=== PATIENT | male | born 1965 | race Caucasian/White ===

== ENCOUNTER 2022-09-25 11:09 | Emergency (ER) | payer OTHER, SELFPAY ==
--- NOTE | ~2022-09-25 | CT_ITS ---
Noncontrast CT scan of the lumbar spine CLINICAL HISTORY: Left leg radiculopathy TECHNIQUE: Axial noncontrast imaging of the lumbar spine was performed. Sagittal and coronal reformat radha images were constructed. Dose reduction technique was used on this scan by utilizing automated ex posure control and iterative reconstruction technique. The dose-length product (DLP) was 1316.81 mGy- cm. FINDINGS: There is no fracture or subluxation of the lumbar spine. Vertebral bodies maintain normal h eight and alignment. Intervertebral disc spaces are well preserved. At L1-L2, there is no disc bulge or herniation. No spinal canal stenosis or neural foraminal narrowin g. At L2-L3, there is disc bulge and mild facet arthropathy. There is possible minimal central canal kirk nosis. There is minimal left neural foraminal narrowing. Right neural foramen preserved. At L3-L4, there is minimal disc bulge. No central canal stenosis. There is minimal left neural forami nal narrowing. Right neural foramen preserved. At L4-L5, there is mild disc bulge. No alyson central canal stenosis. There is mild to moderate bilate ral neural foraminal narrowing. At L5-S1, there is no disc bulge or herniation. No spinal canal stenosis or neural foraminal narrowin g. Paravertebral soft tissues are unremarkable. Impression: Mild degenerative spondylosis, as detailed above. Reviewed, dictated and finalized at [facility]. Impression: Mild degenerative spondylosis, as detailed above.
[2022-09-25 11:16] VITALS: BP 119/98; PULSE 120; RESP 18; TEMP 36.8; O2SAT 99
--- NOTE | 2022-09-25 12:19 | PC.NURSE ---
Pt to CT scan via stretcher at this time.
[2022-09-25 12:59] VITALS: PULSE 109; RESP 16; O2SAT 93
[2022-09-25] MEDS: CYCLOBENZAPRINE HCL 5 MG TABLET PO (13:14)
--- NOTE | 2022-09-25 13:16 | ED.GENADULT ---
HPI - General Adult General Chief complaint: Unspecified Stated complaint: Hernia Time Seen by Provider: 09/25/22 11:45 History of Present Illness HPI narrative: This is a 56-year-old male with past history of coronary artery disease, who presents emergency department complaining of left lower back pain and leg pain after lifting heavy objects. The patient states 2 days ago, he lifted a heavy cooler. Shortly thereafter, he developed left lower back pain, described as sharp with radiation to the left leg and groin. He denies loss of bowel or bladder control and denies loss of sensation in the groin. Related Data Allergies Allergy/AdvReac Type Severity Reaction Status Date / Time No Known Allergies Allergy Verified 09/25/22 11:24 Review of Systems Review of Systems: CONSTITUTIONAL: Denies fever, chills, or sweats. CARDIOVASCULAR: Denies chest pain, palpitations, or edema. RESPIRATORY: Denies cough or dyspnea. GASTROINTESTINAL: Denies abdominal pain, nausea, vomiting, or diarrhea. GENITOURINARY: Denies dysuria or hematuria. SKIN: Denies rash or itching. MUSCULOSKELETAL: Left-sided low back pain denies joint pain, or myalgia. NEUROLOGIC: Denies headache, numbness, dizziness, or weakness. PSYCHIATRIC: Denies anxiety or depression. PMFSH Past Medical History Medical History (Updated 09/25/22 @ 13:23 by Nimesh Cox MD) Coronary artery disease Surgical History Surgical History (Updated 09/25/22 @ 13:17 by Nimesh Cox MD) S/P coronary artery stent placement Social History Social History (Updated 09/25/22 @ 13:20 by Nimesh Cox MD) Smoking status: Current every day smoker Alcohol intake: current Substance use: never Exam Narrative: GENERAL: Well-developed, well-nourished, and in no acute distress. HEAD: Normocephalic, atraumatic. EYES: PERRLA and EOMI. ENT: Nares clear, no rhinorrhea or epistaxis. Mucous membranes moist. Oropharynx without tonsillar hypertrophy exudate or other lesions. NECK: Supple. No adenopathy or masses. No carotid bruits or JVD. No midline spine tenderness to palpation, no step-off or crepitus CHEST: Clear to auscultation. No respiratory distress. No wheezes rales or rhonchi HEART: Regular rate and rhythm. No murmur heard. Normal peripheral pulses. ABDOMEN: Soft, nontender, nondistended, normal active bowel sounds. : Normal-appearing testes. Normal appearing penis. Circumcised. Cremasteric reflex intact. BACK: No midline spine tenderness to palpation, no step-off or crepitus EXTREMITIES: Normal range of motion. No edema. SKIN: Warm, dry, no rash. NEURO: No focal deficits. Alert and oriented x3. Strength 5/5 in all extremities, sensation intact bilaterally PSYCH: Normal mood and affect. Course Course Emergency Course: 13:00 -CT lumbar spine shows lumbar disc degenerative disease with mild left foraminal narrowing at L2-L3. There are no noted fractures or other masses. Will discharge with muscle relaxants and recommendations to follow-up with primary care. Discussed return and emergent precautions including signs/symptoms of cauda equina. The patient voiced understanding and is comfortable with the plan. All questions answered to his satisfaction. Vital Signs Vital signs: Vital Signs Temperature 98.3 F 09/25/22 11:16 Pulse Rate 120 H 09/25/22 11:16 Respiratory Rate 18 09/25/22 11:16 Blood Pressure 119/98 H 09/25/22 11:16 Pulse Oximetry 99 09/25/22 11:16 Oxygen Delivery Room Air 09/25/22 11:16 Temperature 98.3 F 09/25/22 11:16 Pulse Rate 109 H 09/25/22 12:59 Respiratory Rate 16 09/25/22 12:59 Blood Pressure 119/98 H 09/25/22 11:16 Pulse Oximetry 93 09/25/22 12:59 Oxygen Delivery Room Air 09/25/22 11:16 Medical Decision Making [facility] Narrative Medical decision making narrative: Plan: Imaging, pain control, reassess Differential Diagnosis Differential Diagnosis: Fracture, degenerative disc
[2022-09-25 13:21] VITALS: BP 144/101
== END 2022-09-25 13:34 | disposition home or self-care (01) ==
PROVIDERS: Emergency Provider Preventive Medicine Aerospace Medicine; PCP Internal Medicine Cardiovascular Disease
DX: M47.26 Other spondylosis with radiculopathy, lumbar region (principal); I25.10 Atherosclerotic heart disease of native coronary artery without angina pectoris; Z95.5 Presence of coronary angioplasty implant and graft; F17.200 Nicotine dependence, unspecified, uncomplicated
CPT/HCPCS: 72131; 99284; A9270

== ENCOUNTER 2024-11-21 13:07 | Outpatient (CLI) | payer MEDICAID, SELFPAY ==
--- NOTE | ~2024-11-21 | CT_ITS ---
CT Scan of the Chest without Contrast: Clinical Indication: Lung cancer screening, nicotine dependence Technique: Contiguous sections were acquired throughout the chest without intravenous contrast. Dose reduction technique was used on this scan by utilizing automated exposure control and iterative recon struction technique. The dose-length product (DLP) was 165.41 mGy-cm. Findings: There is no evidence of any significant mediastinal, hilar or axillary lymphadenopathy. The mediastin al soft tissues appear normal. There is no evidence of pleural or pericardial effusion. The lungs are clear. No pulmonary nodules or infiltrates are noted. Images through the upper abdomen reveal no abnormalities. Impression: Lung RADS 1: Negative. 12 month follow-up screening CT advised. Reviewed, dictated and finalized at location . Impression: Lung RADS 1: Negative. 12 month follow-up screening CT advised.
--- OUTSIDE RECORDS SUMMARY | 2024-11-21 13:11 | XMS_ITS | Clinical Summary ---
[facility] Organization [facility] Address [address] [place] [address] Phone Care Team Providers Care Proof Carrier Name Role Phone Analy Willis MD Primary Care Provider [phone] Allergies No known active allergies Medications amLODIPine (NORVASC) 10 mg tablet Starting 10/17/24, Take 1 Tablet (10 mg) by mouth daily. 30 Tablet 2 5 02/11/20 25 Active aspirin (ECOTRIN EC) 81 mg Tablet, Delayed Release (E.C.) Starting 10/17/24, Take 1 Tablet (81 mg) by mouth daily. 30 Tablet 2 5 02/11/20 25 Active Blood Pressure Monitor KitIndications:E ssential hypertension Monitor blood pressure daily 1 Kit 5 Active losartan (COZAAR) 25 mg tablet Starting 10/17/24, Take 1 Tablet (25 mg) by mouth daily. 30 Tablet 2 5 02/11/20 25 Active metoprolol succinate (TOPROL XL) 100 mg Extended Release 24 hour tablet Starting 10/17/24, Take 1 Tablet (100 mg) by mouth daily. 30 Tablet 2 5 02/11/20 25 Active rivaroxaban (XARELTO) 20 mg Tablet Take 1 Tablet (20 mg) by mouth daily with supper. 30 Tablet 2 5 02/11/20 25 Active rosuvastatin (CRESTOR) 10 mg tablet Take 4 Tablets (40 mg) by mouth daily. 120 Tablet 2 5 02/11/20 Active losartan (COZAAR) 25 mg tablet Take 1 Tablet (25 mg) by mouth daily. 30 Tablet 2 11/17/2024 9:18 AM CDT 5 Active amLODIPine (NORVASC) 10 mg tablet Take 1 Tablet (10 mg) by mouth daily. 30 Tablet 2 11/17/2024 9:18 AM CDT 5 Active rosuvastatin (CRESTOR) 10 mg tablet Take 4 Tablets (40 mg) by mouth daily. 120 Tablet 2 11/17/2024 9:18 AM CDT 5 Active metoprolol succinate (TOPROL XL) 100 mg Extended Release 24 hour tablet Take 1 Tablet (100 mg) by mouth daily. 30 Tablet 2 11/17/2024 9:18 AM CDT 5 Active aspirin (ECOTRIN EC) 81 mg Tablet, Delayed Release (E.C.) Take 1 Tablet (81 mg) by mouth daily. 30 Tablet 2 11/17/2024 9:18 AM CDT 5 Active rivaroxaban (Xarelto) 20 mg Tablet Take 1 Tablet (20 mg) by mouth daily with supper. 30 Tablet 2 11/17/2024 9:18 AM CDT 5 Active Miscellaneous Medical Supply (Blood Pressure Cuff) MONITOR BLOOD PRESSURE DAILY. 1 Each 5 Active aspirin (ECOTRIN EC) 81 mg Tablet, Delayed Release (E.C.) Starting 10/17/24, Take 1 Tablet (81 mg) by mouth daily. 30 Tablet 2 10/16/2024 1:47 PM CDT 5 11/12/19 Discontinu ed(Reorder ) rivaroxaban (XARELTO) 20 mg Tablet Take 1 Tablet (20 mg) by mouth daily with supper. 30 Tablet 2 10/16/2024 1:47 PM CDT 5 11/12/19 Discontinu ed(Reorder ) amLODIPine (NORVASC) 10 mg tablet Starting 10/17/24, Take 1 Tablet (10 mg) by mouth daily. 30 Tablet 2 10/16/2024 1:47 PM CDT 5 11/12/19 Discontinu ed(Reorder ) losartan (COZAAR) 25 mg tablet Starting 10/17/24, Take 1 Tablet (25 mg) by mouth daily. 30 Tablet 2 10/16/2024 1:47 PM CDT 5 11/12/19 Discontinu ed(Reorder ) metoprolol succinate (TOPROL XL) 100 mg Extended Release 24 hour tablet Starting 10/17/24, Take 1 Tablet (100 mg) by mouth daily. 30 Tablet 2 10/16/2024 1:47 PM CDT 5 11/12/19 Discontinu ed(Reorder ) rosuvastatin (CRESTOR) 10 mg tablet Take 4 Tablets (40 mg) by mouth daily. 120 Tablet 2 10/16/2024 1:47 PM CDT 5 11/12/19 Discontinu ed(Reorder ) walker Length of Need: 99 months Ht Readings from Last 1 Encounters: 10/01/24 : 6' 2 (1.88 m) , Weight: 109.7 kg (241 lb 14.4 oz) (10/09/24 0805). If over 300 lbs, patient requires heavy duty. Type of walker:walke r with wheels 1 Each 5 10/24/19 Blood Pressure Monitor KitIndications:E ssential hypertension Monitor blood pressure daily 1 Kit 5 11/12/19 Discontinu ed(Reorder ) Active Problems Problem Noted Date Diagnosed Date Smoking greater than 20 pack years 11/02/2024 Dysarthria, post-stroke 11/02/2024 Prediabetes 11/02/2024 Right hemiplegia 11/02/2024 Acute hypoxic respiratory failure 10/02/2024 Cerebellar infarct 10/02/2024 Acute arterial ischemic stroke, vertebrobasilar, cerebellar 10/02/2024 ANTHONY (obstructive sleep apnea) 10/02/2024 Polysubstance abuse 10/02/2024 Cerebellar edema 10/02/2024 Expressive aphasia 10/02/2024 RADHA (acute kidney injury) 10/02/2024 Oropharyngeal dysphagia 10/02/2024 Aortic mural thrombus 10/02/2024 Cerebrovascular accident (CV A) due to bilateral embolism of vertebral arteries 10/01/2024 Alcohol abuse 10/01/2024 Transaminitis 10/01/2024 Tobacco abuse 10/01/2024 Obesity (BMI 30.0-34.9) 10/01/2024 History of CAD (coronary artery disease) 025 Mixed hyperlipidemia 10/01/2024 Benign hypertension 10/01/2024 Methamphetamine use Essential hypertension H/O acute myocardial infarction Encounters Date Type Department Care Team Description 11/18/2024 Telephone [facility] [address] [place] [address] Sandra Galeano DO Foot Pain 11/17/2024 Telephone 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 [address] [place] [address] Marina Stern NP Essential hypertension 11/10/2024 Telephone [facility] [address] [place] [address] Xiomy Stern FNP Electronic Signature Required on Referrals 11/06/2024 Telephone [facility] [address] [place] [address] Tala Westbrook DO Paperwork 11/04/2024 External Device Data STL ABSTRACTION Provider, Abstract 11/02/2024 3:30 PM CDT Video Visit [facility] [address] [place] [id number] Xiomy Stern FNP Encounter to establish care (Primary Dx); 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 (CMS/HCC); Right hemiplegia (CMS/HCC); Dysarthria, post-stroke; Essential hypertension; Prediabetes; ANTHONY (obstructive sleep apnea); Methamphetamine use ([facility]); Smoking greater than 20 pack years; Foot swelling 10/27/2024 External Device Data STL ABSTRACTION Provider, Abstract 10/16/2024 Patient Outreach [facility] [id number] [place] [address] Seri, [facility] Access 10/16/2024 Patient Outreach [facility] [id number] [place] [address] Seri, [facility] Access 10/09/2024 Patient Outreach [facility] [id number] [place] [address] Seri, [facility] Access 10/09/2024 External Device Data STL ABSTRACTION Provider, Abstract 10/08/2024 External Device Data STL ABSTRACTION Provider, Abstract 10/08/2024 External Device Data STL ABSTRACTION Provider, Abstract 10/07/2024 External Device Data STL ABSTRACTION Provider, Abstract 10/07/2024 Telephone [facility] Heart and Vascular - [address] [facility] [address] [place] [address] Aiden Beauchamp MD 10/07 will need 3 month follow up when discharged. mm/at 10/07/2024 External Device Data STL ABSTRACTION Provider, Abstract 10/05/2024 Travel 10/02/2024 Patient Outreach [facility] [id number] [place] [address] Stacia Helton Referral 10/01/2024 6:58 PM CDT - 10/16/2024 1:45 PM CDT Hospital Encounter [facility] [address] [place] [address] America Hernandez MD Stoll, Barry K, DO Raval, Krunal Dashrathlal, MD Organti, Nikhil, MD Kasireddy, Ravichandra, MD Peterson, Michael, MD Boyer, Gary Ta, Tito Garcia DO Acute arterial ischemic stroke, vertebrobasilar, cerebellar (CMS/HCC) Discharge Disposition: Home or Self Care from Last 3 Months Family History Medical History Relation Name Comments Lung Cancer Father Relation Name Status Comments Father Social History Tobacco Use Types Packs/Day Years Used Date Smoking Tobacco: Every Day Cigarettes 1.5 45.5 Started: 1980 Smokeless Tobacco: Never Tobacco Cessation:Ready to Q uit: Not Asked; Counseling Given: Not Answered Alcohol Use Standard Drinks/Week Comments Yes 3 (1 standard drink = 0.6 oz pur e alcohol) Feeling Safe Answer Date Recorded Are you in a relationship wi th someone who hurts you emotionally and/or physically? No 10/05/2024 Food Insecurity Answer Date Recorded Patient needs follow up regardin 11/18/2024 Transportation Needs Answer Date Record ed Patient needs follow up regardin 11/18/2024 Utility Needs Answer Date Recorded Patient needs follow up regardin 11/18/2024 Sex and Gender Information Value Date Recorded Sex Assigned at Not on file Legal Sex Male 10:32 PM CDT Gender Identity Not on file Sexual Orientation Not on file Last Filed Vital Signs Vital Sign Reading Time Taken Comments Blood Pressure 102/69 10/16/2024 8:09 AM CDT Pulse 71 10/16/2024 8:09 AM CDT Temperature 36.2 C (97.2 F) 10/16/2024 8:09 AM CDT Respiratory Rate 16 10/16/2024 8:09 AM CDT Oxygen Saturation 91% 10/16/2024 8:09 AM CDT Inhaled Oxygen Concentration - - Weight 107.5 kg (237 lb) 11/11/2024 11:38 AM CDT Height 188 cm (6' 2) 11/11/2024 11:38 AM CDT Body Mass Index 30.43 11/11/2024 11:38 AM CDT Plan of Treatment Upcoming Encounters Date Type Department Care Team (Late st Contact Info) Description 12/17/2024 10:30 AM CDT Office Visit [facility] Heart and Vascular - [address] [place] [address] Health Maintenance Due Date Last Done Comments DTAP/TDAP/TD VACCINES (1 - Tdap) 10/29/1983 COLORECTAL SCREENING 2009 Colorectal Cancer Screening 2009 FIT-DNA Q 3 years 2009 FIT/FOBT Q 1 year 2009 Flex Sig/CT Colonography Q 5 years 2009 Lung Cancer Screening 2014 ZOSTER VACCINE (1 of 2) 2014 INFLUENZA VACCINE (#1) 2024 Pre-Diabetes and Diabetes Screening 10/03/2027 10/02/2024 RSV VACCINE (60+ or ) (1 - 1-dose 75+ series) 10/29/2039 HEPATITIS B VACCINES Aged Out No long er eligible based on patient's age to complete this topic Procedures Procedure Name Priority Date/Time Associated Diagnosis Comments TELEMETRY REPORT 10/22/2024 11:5 2 AM CDT BASIC METABOLIC PANEL Routine 10/16/2024 1:43 AM CDT CBC WITH DIFFERENTIAL Routine 10/16/2024 1:43 AM CDT CREATININE Timed Study 10/15/2024 6:[address] ANKLE WO CONTRAST LEFT Routine 10/14/2024 9:58 PM CDT XR VIDEO SWALLOW W SPEECH Routine 10/14/2024 10:53 AM CDT CBC WITH DIFFERENTIAL Routine 10/12/2024 12:22 AM CDT BLOOD CULTURE Routine 10/11/2024 5:39 AM CDT BLOOD CULTURE Routine 10/11/2024 5:39 AM CDT BLOOD CULTURE Routine 10/10/2024 8:49 PM CDT BLOOD CULTURE Routine 10/10/2024 8:49 PM CDT XR CHEST PA OR AP 1 VW Pending Discharge 10/10/2024 10:34 AM CDT CBC WITH DIFFERENTIAL Routine 10/10/2024 1:54 AM CDT POC GLUCOSE Routine 10/08/2024 7:25 AM CDT PATHOLOGY Routine 10/08/2024 2:46 AM CDT PERIPHERAL BLOOD SMEAR PATHOLOGY INTERP Routine 10/08/2024 2:46 AM CDT COMPREHENSIVE METABOLIC PANEL Routine 10/08/2024 2:46 AM CDT CBC WITH DIFFERENTIAL Routine 10/08/2024 2:46 AM CDT POC GLUCOSE Routine 10/07/2024 8:14 PM CDT POC GLUCOSE Routine 10/07/2024 4:30 PM CDT POC GLUCOSE Routine 10/07/2024 12:31 PM CDT SAADIA AURIS SURVEILLANCE SCREEN Routine 10/07/2024 8:56 AM CDT BASIC METABOLIC PANEL Routine 10/07/2024 5:52 AM CDT POC GLUCOSE Routine 10/07/2024 4:51 AM CDT CBC WITH DIFFERENTIAL Routine 10/07/2024 1:58 AM CDT POC GLUCOSE Routine 10/07/2024 12:14 AM CDT POC GLUCOSE Routine 10/06/2024 8:13 PM CDT XR CALCANEUS 2+ VW LEFT Routine 10/06/2024 7:48 PM CDT XR CALCANEUS 2+ VW RIGHT Routine 10/06/2024 7:48 PM CDT POC GLUCOSE Routine 10/06/2024 5:50 PM CDT POC GLUCOSE Routine 10/06/2024 11:21 AM CDT XR VIDEO SWALLOW W SPEECH Routine 10/06/2024 10:56 AM CDT POC GLUCOSE Routine 10/06/2024 7:35 AM CDT POC GLUCOSE Routine 10/06/2024 4:44 AM CDT DIFFERENTIAL, MANUAL Routine 10/06/2024 4:43 AM CDT BASIC METABOLIC PANEL Routine 10/06/2024 4:43 AM CDT CBC WITH DIFFERENTIAL Routine 10/06/2024 4:43 AM CDT POC GLUCOSE Routine 10/05/2024 11:18 PM CDT POC GLUCOSE Routine 10/05/2024 8:11 PM CDT POC GLUCOSE Routine 10/05/2024 3:17 PM CDT POC GLUCOSE Routine 10/05/2024 11:54 AM CDT POC GLUCOSE Routine 10/05/2024 8:10 AM CDT CALCIUM IONIZED Routine 10/05/2024 4:50 AM CDT PHOSPHORUS Stat 10/05/2024 3:46 AM CDT MAGNESIUM LEVEL Stat 10/05/2024 3:46 AM CDT UNFRACTIONATED HEPARIN ACTIVITY Timed Study 10/05/2024 3:46 AM CDT BASIC METABOLIC PANEL Routine 10/05/2024 3:46 AM CDT CBC WITH DIFFERENTIAL Routine 10/05/2024 3:46 AM CDT POC GLUCOSE Routine 10/05/2024 3:45 AM CDT POC GLUCOSE Routine 10/04/2024 11:12 PM CDT POC GLUCOSE Routine 10/04/2024 8:08 PM CDT OSMOLALITY Routine 10/04/2024 4:27 PM CDT BASIC METABOLIC PANEL Routine 10/04/2024 4:27 PM CDT POC GLUCOSE Routine 10/04/2024 4:12 PM CDT OSMOLALITY Routine 10/04/2024 12:53 PM CDT BASIC METABOLIC PANEL Routine 10/04/2024 12:53 PM CDT POC GLUCOSE Routine 10/04/2024 12:[address] HEAD WO CONTRAST Routine 10/04/2024 1 0:57 AM CDT OSMOLALITY Routine 10/04/2024 8:55 AM CDT BASIC METABOLIC PANEL Routine 10/04/2024 8:55 AM CDT POC GLUCOSE Routine 10/04/2024 8:30 AM CDT OSMOLALITY Routine 10/04/2024 4:12 AM CDT UNFRACTIONATED HEPARIN ACTIVITY Timed Study 10/04/2024 4:12 AM CDT BASIC METABOLIC PANEL Routine 10/04/2024 4:12 AM CDT CBC WITH DIFFERENTIAL Routine 10/04/2024 4:12 AM CDT POC GLUCOSE Routine 10/04/2024 4:11 AM CDT OSMOLALITY Routine 10/04/2024 12:30 AM CDT BASIC METABOLIC PANEL Routine 10/04/2024 12:30 AM CDT POC GLUCOSE Routine 10/04/2024 12:29 AM CDT POC GLUCOSE Routine 10/03/2024 8:22 PM CDT BASIC METABOLIC PANEL Routine 10/03/2024 8:10 PM CDT OSMOLALITY Routine 10/03/2024 8:10 PM CDT POC GLUCOSE Routine 10/03/2024 4:08 PM CDT OSMOLALITY Routine 10/03/2024 4:01 PM CDT BASIC METABOLIC PANEL Routine 10/03/2024 11:46 AM CDT OSMOLALITY Routine 10/03/2024 11:46 AM CDT OSMOLALITY Routine 10/03/2024 7:46 AM CDT BASIC METABOLIC PANEL Routine 10/03/2024 7:46 AM CDT OSMOLALITY, URINE Stat 10/03/2024 7:4 2 AM CDT POC GLUCOSE Routine 10/03/2024 7:18 AM CDT EXTRA TUBE (GREEN) Routine 10/03/2024 5: 11 AM CDT EXTRA TUBE Routine 10/03/2024 5:11 AM CDT UNFRACTIONATED HEPARIN ACTIVITY Timed Study 10/03/2024 4:19 AM CDT OSMOLALITY Routine 10/03/2024 4:19 AM CDT BASIC METABOLIC PANEL Routine 10/03/2024 4:19 AM CDT CBC WITH DIFFERENTIAL Routine 10/03/2024 4:19 AM CDT POC GLUCOSE Routine 10/03/2024 4:18 AM CDT OSMOLALITY Routine 10/02/2024 11:32 PM CDT BASIC METABOLIC PANEL Routine 10/02/2024 11:32 PM CDT POC GLUCOSE Routine 10/02/2024 11:31 PM CDT POC GLUCOSE Routine 10/02/2024 8:37 PM CDT OSMOLALITY Routine 10/02/2024 8:37 PM CDT BASIC METABOLIC PANEL Routine 10/02/2024 8:37 PM CDT UNFRACTIONATED HEPARIN ACTIVITY Timed Study 10/02/2024 6:16 PM CDT OSMOLALITY Routine 10/02/2024 4:07 PM CDT BASIC METABOLIC PANEL Routine 10/02/2024 4:07 PM CDT POC GLUCOSE Routine 10/02/2024 3:53 PM CDT UNFRACTIONATED HEPARIN ACTIVITY Timed Study 10/02/2024 12:38 PM CDT POC GLUCOSE Routine 10/02/2024 11:53 AM CDT OSMOLALITY Routine 10/02/2024 11:45 AM CDT BASIC METABOLIC PANEL Routine 10/02/2024 11:45 AM CDT SAADIA AURIS SURVEILLANCE SCREEN Routine 10/02/2024 9:29 AM CDT ECHOCARDIOGRAM W/ CONTRAST AGENT Routine 10/02/2024 8:32 AM CDT PROCALCITONIN Routine 10/02/2024 8:28 AM CDT C-REACTIVE PROTEIN Routine 10/02/2024 8: 28 AM CDT OSMOLALITY Routine 10/02/2024 8:28 AM CDT BASIC METABOLIC PANEL Routine 10/02/2024 8:28 AM CDT POC GLUCOSE Routine 10/02/2024 7:[address] HEAD WO CONTRAST Routine 10/02/2024 5 :35 AM CDT OSMOLALITY Routine 10/02/2024 5:20 AM CDT BASIC METABOLIC PANEL Routine 10/02/2024 5:20 AM CDT UNFRACTIONATED HEPARIN ACTIVITY Timed Study 10/02/2024 5:20 AM CDT POC GLUCOSE Routine 10/02/2024 3:51 AM CDT BASIC METABOLIC PANEL Routine 10/02/2024 3:50 AM CDT MAGNESIUM LEVEL Routine 10/02/2024 3:50 AM CDT LIPID PANEL Routine 10/02/2024 3:50 AM CDT CBC WITH DIFFERENTIAL Routine 10/02/2024 3:50 AM CDT HEMOGLOBIN A1C Routine 10/02/2024 3:50 AM CDT TROPONIN 6 HR, 5TH GEN Timed Study 10/02/2024 1:21 AM CDT XR CHEST PA OR AP 1 VW Stat 10/02/2024 1:11 AM CDT EKG 12-LEAD Stat 10/01/2024 11:38 PM CDT POC GLUCOSE Routine 10/01/2024 11:22 PM CDT US VENOUS DOPPLER LEG BILATERAL Routine 10/01/2024 10:53 PM CDT OSMOLALITY, URINE Stat 10/01/2024 10: 18 PM CDT EXTRA TUBE (URINE BLANCO) Stat 10/01/2024 10:18 PM CDT URINALYSIS W/REFLEX MICROSCOPIC Stat 10/01/2024 10:18 PM CDT DRUG SCREEN, URINE Stat 10/01/2024 10 :18 PM CDT POC GLUCOSE Routine 10/01/2024 10:16 PM CDT UNFRACTIONATED HEPARIN ACTIVITY Routine 10/01/2024 10:13 PM CDT TROPONIN 2 HR, 5TH GEN Timed Study 10/01/2024 10:13 PM CDT TYPE AND SCREEN Stat 10/01/2024 8:38 PM CDT POC GLUCOSE Stat 10/01/2024 8:31 PM CDT MRI BRAIN HYPERACUTE FOR STROKE Stat 10/01/2024 8:[address] CEREBRAL PERFUSION STDY W CONT Stat 10/01/2024 7:53 PM CDT CTA HEAD AND NECK W AND/OR WO CONTRAST Stat 10/01/2024 7:[address] HEAD WO CONTRAST STROKE PROTOCOL Stat 10/01/2024 7:25 PM CDT PHOSPHORUS Routine 10/01/2024 7:17 PM CDT MAGNESIUM LEVEL Routine 10/01/2024 7:17 PM CDT COMPREHENSIVE METABOLIC PANEL Stat 10/01/2024 7:17 PM CDT PROTIME-INR Stat 10/01/2024 7:17 PM CDT CBC WITH DIFFERENTIAL Stat 10/01/2024 7:17 PM CDT TROPONIN BASELINE, 5TH GEN Stat 10/01/2024 7:17 PM CDT EKG 12-LEAD Stat 10/01/2024 7:05 PM CDT CRITICAL CARE Routine 10/01/2024 6:56 PM CDT from Last 3 Months Results * TELEMETRY REPORT (10/22/2024 11:52 AM CDT) us Provider Scanning ECG ORDERABLES Final Result * (ABNORMAL) CBC WITH DIFFERENTIAL (10/16/2024 1:43 AM CDT) Only the most recent of11 resultswithin the time period is included. WBC 14.6(H) 4.0 - 9.8 K/uL 10/16/2024 2:21 AM CDT [facility] RBC 4.96 4.50 - 5.40 M/uL 10/16/2024 2:21 AM CDT [facility] HEMOGLOBIN 14.6 13.6 - 16.5 g/dL 10/16/2024 2:21 AM CDT [facility] HEMATOCRIT 44.5 40.0 - 48.0 % 10/16/2024 2:21 AM CDT [facility] MCV 89.7 82.0 - 99.0 fL 10/16/2024 2:21 AM CDT [facility] MCH 29.4 27.2 - 32.6 pg 10/16/2024 2:21 AM CDT [facility] MCHC 32.8 31.5 - 35.5 g/dL 10/16/2024 2:21 AM CDT [facility] RDW 12.4 11.5 - 14.5 % 10/16/2024 2:21 AM CDT [facility] RDW-STDEV 40.8 37.1 - 48.7 fL 10/16/2024 2:21 AM CDT [facility] PLATELETS 417(H) 140 - 350 K/uL 10/16/2024 2:21 AM CDT [facility] MPV 10.6 9.3 - 12.4 fL 10/16/2024 2:21 AM CDT [facility] NEUTROPHILS 57 % 10/16/2024 2:21 AM CDT [facility] LYMPHOCYTES 29 % 10/16/2024 2:21 AM CDT [facility] MONOCYTES 6 % 10/16/2024 2:21 AM CDT [facility] EOSINOPHILS 6 % 10/16/2024 2:21 AM CDT [facility] BASOPHILS 2 % 10/16/2024 2:21 AM CDT [facility] IMMATURE GRANULOCYTES 0 % 10/16/2024 2:21 AM CDT [facility] NEUTROPHIL ABSOLUTE 8.38(H) 1.90 - 7.00 K/uL 10/16/2024 2:21 AM CDT [facility] LYMPHOCYTE ABSOLUTE 4.21 0.70 - 4.50 K/uL 10/16/2024 2:21 AM CDT [facility] MONOCYTE ABSOLUTE 0.83 0.10 - 1.30 K/uL 10/16/2024 2:21 AM CDT [facility] EOSINOPHIL ABSOLUTE 0.93(H) 0.00 - 0.70 K/uL 10/16/2024 2:21 AM CDT [facility] BASOPHILS ABSOLUTE 0.23(H) 0.00 - 0.20 K/uL 10/16/2024 2:21 AM CDT [facility] IMMATURE GRANULOCYTES ABSOLUTE 0.05(H) 0.00 - 0.03 K/uL 10/16/2024 2:21 AM CDT [facility] Blood Venipuncture / Unknown 10/16/2024 1:43 AM CDT 10/16/2024 2:19 AM CDT Tito Lin DO HEMATOLOGY ORDERABLE S Final Result [facility] CLIA# [id number] [place] [address] * (ABNORMAL) BASIC METABOLIC PANEL (10/16/2024 1:43 AM CDT) Only the most recent of20 resultswithin the time period is included. SODIUM 138 136 - 145 mmol/L 10/16/2024 2:23 AM CDT [facility] POTASSIUM 4.5 3.4 - 5.1 mmol/L 10/16/2024 2:23 AM CDT [facility] CHLORIDE 103 98 - 107 mmol/L 10/16/2024 2:23 AM CDT [facility] CO2 24 22 - 29 mmol/L 10/16/2024 2:23 AM CDT [facility] CALCIUM 9.2 8.6 - 10.4 mg/dL 10/16/2024 2:23 AM CDT [facility] BUN 19 6 - 20 mg/dL 10/16/2024 2:23 AM CDT [facility] CREATININE 1.10 0.67 - 1.17 mg/dL 10/16/2024 2:23 AM CDT [facility] GLUCOSE 107(H) 74 - 99 mg/dL 10/16/2024 2:23 AM CDT [facility] GFR >60 >=60 mL/min/1.7 3 sq meter 10/16/2024 2:23 AM CDT [facility] Comment:eGFR calculated with 2020 CKD-EPI equation. Vegetarian diet, extremely high or low muscle mass, and may affect results. Cystatin C with Glomerular Filtration Rate is a suitable alternative for these patients. ANION GAP 11 8 - 16 mmol/L 10/16/2024 2:23 AM CDT [facility] Blood Venipuncture / Unknown 10/16/2024 1:43 AM CDT 10/16/2024 1:55 AM CDT Tito Lin DO CHEMISTRY ORDERABLES Final Result Performing Organization Address [facility]/ZIP Co de Phone Number [facility] CLIA# [id number] [place] [address] * CREATININE (10/15/2024 6:55 AM CDT) CREATININE 1.17 0.67 - 1.17 mg/dL 10/15/2024 8:17 AM CDT [facility] GFR >60 >=60 mL/min/1.7 3 sq meter 10/15/2024 8:17 AM CDT [facility] Comment:eGFR calculated with 2020 CKD-EPI equation. Vegetarian diet, extremely high or low muscle mass, and may affect results. Cystatin C with Glomerular Filtration Rate is a suitable alternative for these patients. Blood Venipuncture / Unknown 10/15/2024 6:55 AM CDT 10/15/2024 7:47 AM CDT Gary Lin DO CHEMISTRY ORDERABLES Final Res ult Performing Organization Address [facility]/ZIP Co de Phone Number [facility] CLIA# [id number] [place] [address] * CT ANKLE WO CONTRAST LEFT (10/14/2024 9:58 PM CDT) Anatomical Region Laterality Modality Ankle / Foot Computed Tomogra phy 10/14/2024 9:59 PM CDT Impressions 10/14/2024 10:10 PM CDT IMPRESSION: 1. No acute fracture or dislocation identified. DICTATION LOCATION: Location 4 Narrative 10/14/2024 10:10 PM CDT EXAMINATION: CT ANKLE WO CONTRAST LEFT DATE: 10/14/2024 9:58 PM HISTORY: Ankle pain, neg xray; Cerebellar infarct (CMS/HCC) TECHNIQUE: CT of the left ankle was performed without contrast according to standard protocol. The examination was performed with the adjustment of mA according to the patient size and/or the use of Iterative Re[employer] Technique. COMPARISON: No prior study is available for comparison at the time of this dictation. FINDINGS: No acute fracture or dislocation is identified. The joint spaces appear normal. There is mild soft tissue swelling laterally. The peroneal tendons are not dislocated. Calcaneal spurs are present. Procedure Note Nimesh Laureano MD - 10/14/2024 EXAMINATION: CT ANKLE WO CONTRAST LEFT DATE: 10/14/2024 9:58 PM HISTORY: Ankle pain, neg xray; Cerebellar infarct (CMS/HCC) TECHNIQUE: CT of the left ankle was performed without contrast according to standard protocol. The examination was performed with the adjustment of mA according to the patient size and/or the use of Iterative Reconstruction Technique. COMPARISON: No prior study is available for comparison at the time of this dictation. FINDINGS: No acute fracture or dislocation is identified. The joint spaces appear normal. There is mild soft tissue swelling laterally. The peroneal tendons are not dislocated. Calcaneal spurs are present. IMPRESSION: 1. No acute fracture or dislocation identified. DICTATION LOCATION: Location 4 us Gary Lin DO CT ORDERABLES Final Result * XR VIDEO SWALLOW W SPEECH (10/14/2024 10:53 AM CDT) Only the most recent of2 resultswithin the time period is included. Anatomical Region Laterality Modality Chest Computed Radiogr aphy 10/14/2024 10:5 6 AM CDT Narrative 10/14/2024 11:33 AM CDT EXAMINATION: XR VIDEO SWALLOW W SPEECH DATE: 10/14/2024 10:53 AM HISTORY: Aspiration; Cerebellar infarct (CMS/HCC) FLUOROSCOPY TIME: 0.7 minutes REFERENCE AIR KERMA DOSE: 4.72 mGy COMPARISON: No prior study is available for comparison at the time of this dictation. FINDINGS: A swallow study was performed with multiple modalities of oral barium contrast administered by Speech Pathology. Under fluoroscopic monitoring, there is aspiration with thin liquid. There is no aspiration identified with nectar, honey, or solid consistencies. Please refer to Speech Pathology notes for further details and recommendations. DICTATION LOCATION: Location [address] [place] [address] Procedure Note Landry Ferguson MD - 10/14/2024 EXAMINATION: XR VIDEO SWALLOW W SPEECH DATE: 10/14/2024 10:53 AM HISTORY: Aspiration; Cerebellar infarct (CMS/HCC) FLUOROSCOPY TIME: 0.7 minutes REFERENCE AIR KERMA DOSE: 4.72 mGy COMPARISON: No prior study is available for comparison at the time of this dictation. FINDINGS: A swallow study was performed with multiple modalities of oral barium contrast administered by Speech Pathology. Under fluoroscopic monitoring, there is aspiration with thin liquid. There is no aspiration identified with nectar, honey, or solid consistencies. Please refer to Speech Pathology notes for further details and recommendations. DICTATION LOCATION: [address] Gary Lin DO DIAGNOSTIC IMAGING ORDERABLES Final Result * BLOOD CULTURE (10/11/2024 5:39 AM CDT) Only the most recent of2 resultswithin the time period is included. BLOOD CULTURE No growth 10/16/2024 11:52 AM CDT [facility] [employer] [facility] Blood (Peripheral) Venipuncture / Unknown 10/11/2024 5:39 AM CDT 10/11/2024 6:01 AM CDT Gary Lin DO MICROBIOLOGY - GENERAL ORDERAB LES Final Result [facility] CLIA# [id number] [address] [facility] [place] [address] * XR CHEST PA OR AP 1 VW (10/10/2024 10:34 AM CDT) Only the most recent of2 resultswithin the time period is included. Anatomical Region Laterality Modality Chest Computed Radiogr aphy 10/10/2024 10:3 4 AM CDT Impressions 10/10/2024 10:38 AM CDT IMPRESSION: 1. No acute cardiopulmonary process. DICTATION LOCATION: Location [address] [place] [address] Narrative 10/10/2024 10:38 AM CDT EXAMINATION: Portable chest single view. HISTORY: Congestion. FINDINGS: Single portable view of the chest is compared to prior 10/02/2024. There is no focal consolidation, pneumothorax, pleural effusion, or edema. The cardiomediastinal contours are normal. Procedure Note Melissa Prasda MD - 10/10/2024 EXAMINATION: Portable chest single view. HISTORY: Congestion. FINDINGS: Single portable view of the chest is compared to prior 10/02/2024. There is no focal consolidation, pneumothorax, pleural effusion, or edema. The cardiomediastinal contours are normal. IMPRESSION: 1. No acute cardiopulmonary process. DICTATION LOCATION: Location [address] [place] [address] us Gary Lin DO DIAGNOSTIC IMAGING ORDERABLES Final Result * (ABNORMAL) POC GLUCOSE (10/08/2024 7:25 AM CDT) Only the most recent of37 resultswithin the time period is included. GLUCOSE POC 126(H) 74 - 99 mg/dL 10/08/2024 7:25 AM CDT [facility] POINT OF CARE SPECIMEN SOURCE, GLUCOSE POC Whole Blood 10/08/2024 7:25 AM CDT [facility] POINT OF CARE COMMENT, GLU POC Notified RN/MD 10/08/2024 7:25 AM CDT [facility] POINT OF CARE Blood, whole 10/08/2024 7:25 AM CDT 10/08/2024 7:32 AM CDT us Gary Lin DO POINT OF CARE TESTING Final Re sult Performing Organization Address [facility]/ZIP Co de Phone Number [facility] POINT OF CARE CLIA # [id number] [place] [address] * PERIPHERAL BLOOD SMEAR PATHOLOGY INTERP (10/08/2024 2:46 AM CDT) PERIPHERAL BLOOD SMEAR INTERP See Pathology Report to Follow 10/08/2024 2:05 PM CDT [facility] Blood Venipuncture / Unknown 10/08/2024 2:46 AM CDT 10/08/2024 3:10 AM CDT Gary Lin DO HEMATOLOGY ORDERABLES Final Re sult Performing Organization Address [facility] Co de Phone Number [facility] CLIA# [id number] [place] [address] * PATHOLOGY (10/08/2024 2:46 AM CDT) CASE REPORT Surgical Pathology Report Case: [id number] Authorizing Provider: Gary Lin DO Collected: 10/08/2024 02:46 AM [facility] Received: 10/08/2024 02:43 PM Neurology Medical Pathologist: Stacia Pierce DO Specimen: Peripheral Blood Smear 10/08/2024 2:57 PM CDT [facility] FINAL DIAGNOSIS Peripheral smear review - Leukocytosis 10/08/2024 2:57 PM CDT [facility] at 1457 CDT MICROSCOPIC DESCRIPTION Reviewed are a patient labeled peripheral smear and CBC from 10/08/2024. There is a neutrophilic leukocytosis. Eosinophils appear slightly increased and there is a rare immature granulocyte. No blasts are seen. Red cells are normocytic and uniform. Platelets appear adequate. 10/08/2024 2:57 PM CDT [facility] CLINICAL INFORMATION No Dx found. 10/08/2024 2:57 PM CDT [facility] COMMENT Immunohistochemical stains were performed, if any, and interpreted at [facility] ([facility]) Laboratory with appropriately staining controls. This test was developed and its performance characteristics determined by [facility] Lab. It has not been cleared or approved by the US Food and Drug Administration. The FDA does not require this test to go through premarket FDA review. This test is used for clinical purposes, and should not be regarded as investigational or for research. This lab is certified under CLIA to perform high complexity testing. Estrogen and progesterone receptor staining has not been validated in our lab on decalcified tissue; decalcification may decrease immunoreactivity for these and other antigens. 10/08/2024 2:57 PM CDT [facility] Tissue (Peripheral Blood Smear) 10/08/2024 2:46 AM CDT 10/08/2024 2:43 PM CDT Gary Lin DO PATHOLOGY/CYTOLOGY ORDERABLES Final Result [facility] CLIA# [id number] [address] [place] [address] * (ABNORMAL) COMPREHENSIVE METABOLIC PANEL (10/08/2024 2:46 AM CDT) Only the most recent of2 resultswithin the time period is included. SODIUM 143 136 - 145 mmol/L 10/08/2024 3:42 AM CDT [facility] POTASSIUM 4.2 3.4 - 5.1 mmol/L 10/08/2024 3:42 AM CDT [facility] CHLORIDE 105 98 - 107 mmol/L 10/08/2024 3:42 AM CDT [facility] CO2 24 22 - 29 mmol/L 10/08/2024 3:42 AM CDT [facility] CALCIUM 9.7 8.6 - 10.4 mg/dL 10/08/2024 3:42 AM CDT [facility] BUN 25(H) 6 - 20 mg/dL 10/08/2024 3:42 AM CDT [facility] CREATININE 0.98 0.67 - 1.17 mg/dL 10/08/2024 3:42 AM T [facility] GLUCOSE 129(H) 74 - 99 mg/dL 10/08/2024 3:42 AM T [facility] TOTAL PROTEIN 7.4 6.3 - 8.7 g/dL 10/08/2024 3:42 AM T [facility] ALBUMIN 3.7 3.5 - 5.2 g/dL 10/08/2024 3:42 AM T [facility] BILIRUBIN TOTAL 0.3 0.0 - 1.2 mg/dL 10/08/2024 3:42 AM T [facility] ALKALINE PHOSPHATASE 148 40 - 150 U/L 10/08/2024 3:42 AM T [facility] AST 33 0 - 41 U/L 10/08/2024 3:42 AM T [facility] ALT 53(H) 0 - 41 U/L 10/08/2024 3:42 AM T [facility] GFR >60 >=60 mL/min/1.7 3 sq meter 10/08/2024 3:42 AM [facility] Comment:eGFR calculated with 2020 CKD-EPI equation. Vegetarian diet, extremely high or low muscle mass, and may affect results. Cystatin C with Glomerular Filtration Rate is a suitable alternative for these patients. ANION GAP 14 8 - 16 mmol/L 10/08/2024 3:42 AM T [facility] Blood Venipuncture / Unknown 10/08/2024 2:46 AM CDT 10/08/2024 3:10 AM CDT us Gary Lin DO CHEMISTRY ORDERABLES Final Res ult [facility] CLIA# [id number] [place] [address] * SAADIA AURIS SURVEILLANCE SCREEN (10/07/2024 8:56 AM CDT) Only the most recent of2 resultswithin the time period is included. CULTURE No Saadia auris isolated 10/10/2024 8:56 AM CDT [facility] Surveillance (Axilla/Groin) Collection / Unknown 10/07/2024 8:56 AM CDT 10/07/2024 9:01 AM CDT Jessa Spaulding MD MICROBIOLOGY - GENERAL ORDERABLES Final Result [id number] [address] [place] [address] * XR CALCANEUS 2+ VW LEFT (10/06/2024 7:48 PM CDT) Anatomical Region Laterality Modality Ankle / Foot Computed Radiogr aphy 10/06/2024 7:48 PM CDT Impressions 10/06/2024 7:57 PM CDT IMPRESSION: Calcaneal spurs otherwise negative DICTATION LOCATION: [address] Narrative 10/06/2024 7:57 PM CDT LEFT CALCANEUS DATE: 10/06/2024 7:48 PM HISTORY: Pain COMPARISON: No prior studies are available for comparison. TECHNIQUE: Tangential and lateral FINDINGS: Tangential and lateral images show inferior and posterior calcaneal spurs. No fracture or lytic change is seen. INCIDENTAL FINDINGS: None. Procedure Note Sabino Scott MD - 10/06/2024 LEFT CALCANEUS DATE: 10/06/2024 7:48 PM HISTORY: Pain COMPARISON: No prior studies are available for comparison. TECHNIQUE: Tangential and lateral FINDINGS: Tangential and lateral images show inferior and posterior calcaneal spurs. No fracture or lytic change is seen. INCIDENTAL FINDINGS: None. IMPRESSION: Calcaneal spurs otherwise negative DICTATION LOCATION: Location [address] [place] [address] us Landry Rollins MD DIAGNOSTIC IMAGING ORDERABLE S Final Result * XR CALCANEUS 2+ VW RIGHT (10/06/2024 7:48 PM CDT) Anatomical Region Laterality Modality Ankle / Foot Computed Radiogr aphy 10/06/2024 7:48 PM CDT Impressions 10/06/2024 7:57 PM CDT IMPRESSION: No acute calcaneal pathology Inferior calcaneal spur DICTATION LOCATION: Location [address] [place] [address] Narrative 10/06/2024 7:57 PM CDT RIGHT CALCANEUS DATE: 10/06/2024 7:48 PM HISTORY: Pain COMPARISON: No prior studies are available for comparison. TECHNIQUE: AP lateral FINDINGS: Tangential and lateral calcaneus radiograph shows an inferior calcaneal spur. There is no fracture or lytic change. INCIDENTAL FINDINGS: None. Procedure Note Sabino Scott MD - 10/06/2024 RIGHT CALCANEUS DATE: 10/06/2024 7:48 PM HISTORY: Pain COMPARISON: No prior studies are available for comparison. TECHNIQUE: AP lateral FINDINGS: Tangential and lateral calcaneus radiograph shows an inferior calcaneal spur. There is no fracture or lytic change. INCIDENTAL FINDINGS: None. IMPRESSION: No acute calcaneal pathology Inferior calcaneal spur DICTATION LOCATION: Location [address] [place] [address] Martin Juarez MD DIAGNOSTIC IMAGING ORDERABLE S Final Result * MANUAL DIFFERENTIAL (10/06/2024 4:43 AM CDT) PLATELET EST. Adequate 10/06/2024 6:17 AM CDT [facility] RBC MORPHOLOGY Normal 10/06/2024 6:17 AM CDT [facility] Blood Venipuncture / Unknown 10/06/2024 4:43 AM CDT 10/06/2024 5:09 AM CDT us Tyrone Mcallister NP HEMATOLOGY ORDERABLES COM Fin al Result [facility] CLIA# [id number] [place] [address] * (ABNORMAL) CALCIUM IONIZED (10/05/2024 4:50 AM CDT) PH, VENOUS 7.42 Ref Range Not Established 10/05/2024 6:11 AM CDT [facility] CALCIUM IONIZED 2.8(LL) 4.8 - 5.2 mg/dL 10/05/2024 6:11 AM CDT [facility] Comment:Verified by repeat a nalysis. Blood Venipuncture / Unknown 10/05/2024 4:50 AM CDT 10/05/2024 5:12 AM CDT us Arden Payton MD CHEMISTRY ORDERABLES Final Res ult Performing Organization Address City/[facility]/ZIP Co de Phone Number [facility] CLIA# [id number] [place] [address] * UNFRACTIONATED HEPARIN MONITORING (10/05/2024 3:46 AM CDT) Only the most recent of7 resultswithin the time period is included. ANTI-XA UNFRAC HEP 0.46 See Interpreta tion. IU/mL 10/05/2024 4:33 AM CDT [facility] Blood Venipuncture / Unknown 10/05/2024 3:46 AM CDT 10/05/2024 3:52 AM CDT Narrative [facility] - 10/05/2024 4:33 AM CDT Unfractionated Heparin Therapeutic Range: 0.30-0.70 IU/ml Refer to pharmacy adult heparin protocol for further recommendation. The reference range for this test is specific to the anticoagulant and is not appropriate for monitoring patients on a DOAC protocol. us Ronnie Martinez DO HEMATOLOGY ORDERABLES Final Res ult Performing Organization Address City/[facility]/ZIP Co de Phone Number [facility] CLIA# [id number] [place] [address] * PHOSPHORUS (10/05/2024 3:46 AM CDT) Only the most recent of2 resultswithin the time period is included. PHOSPHORUS 3.6 2.5 - 4.5 mg/dL 10/05/2024 5:01 AM CDT [facility] Blood Venipuncture / Unknown 10/05/2024 3:46 AM CDT 10/05/2024 3:52 AM CDT Ronnie Martinez CHEMISTRY ORDERABLES Final Resu lt Performing Organization Address City/[facility] Co de Phone Number [facility] CLIA# [id number] [place] [address] * MAGNESIUM LEVEL (10/05/2024 3:46 AM CDT) Only the most recent of3 resultswithin the time period is included. MAGNESIUM 2.3 1.6 - 2.6 mg/dL 10/05/2024 5:01 AM CDT [facility] Blood Venipuncture / Unknown 10/05/2024 3:46 AM CDT 10/05/2024 3:52 AM CDT Ronnie Martinez CHEMISTRY ORDERABLES Final Resu lt Performing Organization Address City/[facility]/ZIP Co de Phone Number [facility] CLIA# [id number] [place] [address] * (ABNORMAL) OSMOLALITY (10/04/2024 4:27 PM CDT) Only the most recent of16 resultswithin the time period is included. OSMOLALITY 312(H) 289 - 305 mOsm/kg 10/04/2024 4:57 PM CDT [facility] Blood Venipuncture / Unknown 10/04/2024 4:27 PM CDT 10/04/2024 4:39 PM CDT us Allan Soriano MD CHEMISTRY ORDERABLES Final R esult [facility] CLIA# [id number] [place] [address] * CT HEAD WO CONTRAST (10/04/2024 10:57 AM CDT) Only the most recent of2 resultswithin the time period is included. Anatomical Region Laterality Modality Head Computed Tomogra phy 10/04/2024 10:5 2 AM CDT Impressions 10/04/2024 11:21 AM CDT IMPRESSION: 1. 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 2. No acute intracranial hemorrhage present. DICTATION LOCATION: Location 7 - [facility] Narrative 10/04/2024 11:21 AM CDT COMPUTED TOMOGRAPHY SCAN OF THE HEAD WITHOUT CONTRAST DATE: 10/04/2024 10:57 AM HISTORY: Stroke, follow up COMPARISON: 10/02/2024. TECHNIQUE: Standard noncontrast CT was performed with contiguous axial images acquired from skull base to vertex The examination was performed with the adjustment of mA according to the patient size and/or the use of Iterative Reconstruction Technique. FINDINGS: Hypoattenuation within the bilateral cerebellum has increased consistent with evolving infarct. There is also involving bilateral occipital lobe infarcts are noted again, right greater than left. No intracranial hemorrhage present. Ventricular size is unchanged. The calvarium is normal. The paranasal sinuses and mastoid air cells are free of fluid. Procedure Note Philip Galeana MD - 10/04/2024 COMPUTED TOMOGRAPHY SCAN OF THE HEAD WITHOUT CONTRAST DATE: 10/04/2024 10:57 AM HISTORY: Stroke, follow up COMPARISON: 10/02/2024. TECHNIQUE: Standard noncontrast CT was performed with contiguous axial images acquired from skull base to vertex The examination was performed with the adjustment of mA according to the patient size and/or the use of Iterative Reconstruction Technique. FINDINGS: Hypoattenuation within the bilateral cerebellum has increased consistent with evolving infarct. There is also involving bilateral occipital lobe infarcts are noted again, right greater than left. No intracranial hemorrhage present. Ventricular size is unchanged. The calvarium is normal. The paranasal sinuses and mastoid air cells are free of fluid. IMPRESSION: 1. 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 2. No acute intracranial hemorrhage present. DICTATION LOCATION: Location [address] [place] [address] us Suresh Morgan MD CT ORDERABLES Tenn[place] l Result * OSMOLALITY, URINE (10/03/2024 7:42 AM CDT) Only the most recent of2 resultswithin the time period is included. OSMOLALITY, URINE 758 50 - 1,200 mOsm/kg 10/03/2024 8:14 AM CDT [facility] Urine URINE SPECIMEN OBTAINED BY CLEAN CATCH PROCEDURE / Unknown Collection / Unknown 10/03/2024 7:42 AM CDT 10/03/2024 7:51 AM CDT Narrative [facility] - 10/03/2024 8:14 AM CDT Reference range: 50-1200 mOsm/kg H2O, depending on fluid intake. Merrick Elizabeth DO URINE ORDERABLES Final Res ult [facility] [id number] [place] [address] * EXTRA TUBE (GREEN) (10/03/2024 5:11 AM CDT) Blood Venipuncture / Unknown 10/03/2024 5:11 AM CDT 10/03/2024 5:11 AM CDT Suresh Morgan MD CHEMISTRY ORDERABLES Final Result [facility] [id number] [address] [place] [address] * ECHOCARDIOGRAM W/ CONTRAST AGENT (10/02/2024 8:32 AM CDT) EJECTION FRACTION 57 INTERFACE SYSTEM 10/02/2024 7:57 AM CDT Narrative INTERFACE SYSTEM - 10/02/2024 9:41 AM CDT Transthoracic Echocardiogram Patient: Yahir Meeks Study ID: [id number] Gender: M : 1965 Age: 58 Race: [facility] Height 188cm Study Date: 10/02/2024 Weight: 111.3kg Access. #: [id number] BP: 146 / 82 *Referring Physician:* Tyrone Mcallister *Ordering Physician:* Tyrone Mcallister *Shoe Puller:* Hao Barcenas RDCS,[facility] fiber locking supervisor: Nurse: Indications: Cerebrovascular accident. STUDY CONCLUSIONS: SUMMARY: - Left ventricle: The cavity size was normal. Wall thickness was increased in a pattern of mild LVH. Global systolic function is normal. For Epic reporting: the left ventricular ejection fraction is 57% . Focal apical dyskinesis. No clear left ventricular apical thrombus noted. - Left atrium: The atrium is normal in size. - Right ventricle: The cavity size is normal. Systolic function is normal. - Atrial septum: Agitated saline contrast study at baseline or with provocation, shows no hbvlg-gq-smdh atrial level shunt. - Tricuspid valve: Trivial regurgitation. - Pulmonary arteries: The peak systolic pressure is 37mm Hg. Cardiac Anatomy: LEFT VENTRICLE: The cavity size was normal. Wall thickness was increased in a pattern of mild LVH. Global systolic function is normal. For Epic reporting: the left ventricular ejection fraction is 57% . Focal apical dyskinesis. No clear left ventricular apical thrombus noted. AORTIC VALVE: Structurally normal valve. Trileaflet. No significant regurgitation. The mean systolic gradient is 5mm Hg. The peak systolic gradient is 9mm Hg. The LVOT to aortic valve VTI ratio is 0.63. The valve area is 2.8cm^2. The ratio of LVOT to aortic valve peak velocity is 0.61. AORTA: Aortic root: The root is normal-sized. MITRAL VALVE: Structurally normal valve. No significant regurgitation. The peak diastolic gradient is 3mm Hg. LEFT ATRIUM: The atrium is normal in size. ATRIAL SEPTUM: Agitated saline contrast study at baseline or with provocation, shows no wgbvj-qs-blte atrial level shunt. RIGHT VENTRICLE: The cavity size is normal. Systolic function is normal. PULMONIC VALVE: Structurally normal valve. No significant regurgitation. TRICUSPID VALVE: Structurally normal valve. Trivial regurgitation. RIGHT ATRIUM: The atrium was normal in size. SYSTEMIC VEINS: Inferior vena cava: The IVC is normal-sized. PERICARDIUM: There is no pericardial effusion. Measurements Left ventricle Value Ref IVS, ED, LAX (H) 1.2 cm 0.6 - 1.0 MARY, LAX (L) 3.9 cm 4.2 - 5.8 MARY/bsa, LAX (L) 1.6 cm/m^2 2.2 - 3.0 MARY, LAX chord (N) 5.7 cm 4.2 - 5.8 ESD, LAX chord (N) 3.9 cm 2.5 - 4.0 MARY/bsa, LAX chord (N) 2.4 cm/m^2 2.2 - 3.0 ESD/bsa, LAX chord (N) 1.6 cm/m^2 1.3 - 2.1 FS, LAX chord (N) 32 % 25 - 43 IVS, ED (H) 1.2 cm 0.6 - 1.0 PW, ED (H) 1.2 cm 0.6 - 1.0 EDV, 2-p (N) 133 ml 62 - 150 ESV, 2-p (N) 55 ml 21 - 61 EF, 2-p (N) 59 % 52 - 72 SV, 2-p 78 ml --------- SV/bsa, 2-p 32.9 ml/m^2 --------- E', med taz, TDI (N) 9.0 cm/sec >=7.0 E/e', med taz, TDI 9 --------- LVOT Value Ref Diam, S 2.4 cm --------- Area 4.5 cm^2 --------- Peak jenn, S 0.9 m/sec --------- VTI, S 16.9 cm --------- Right ventricle Value Ref MARY minor ax, A4C base (N) 4.0 cm 2.5 - 4.1 MARY minor ax, A4C mid (N) 3.4 cm 1.9 - 3.5 MARY major ax, A4C (N) 7.8 cm 5.9 - 8.3 TAPSE, MM (N) 2.5 cm >=1.7 Pressure, S 37 mm Hg --------- S' lateral (N) 16.4 cm/sec >=9.5 Left atrium Value Ref AP dim, ES (L) 2.9 cm 3.0 - 4.0 AP dim index, ES (L) 1.2 cm/m^2 1.5 - 2.3 SI dim, A4C 6.1 cm --------- Area ES, A4C (H) 24 cm^2 <=20 Area/bsa ES, A4C 10 cm^2/m^2 --------- SI dim, A2C 5.7 cm --------- SI dim, shorter 5.7 cm --------- Vol, ES, 1-p A2C (H) 69 ml 18 - 58 Vol/bsa, ES, 1-p A2C (N) 29 ml/m^2 11 - 43 Vol, ES, 2-p 73 ml --------- Vol/bsa, ES, 2-p (N) 31 ml/m^2 16 - 34 LA/Ao root ratio 0.83 --------- Right atrium Value Ref SI dim, ES, A4C (H) 5.4 cm 3.4 - 5.3 SI dim/bsa, ES, A4C (N) 2.3 cm/m^2 1.8 - 3.0 Area, ES, A4C (H) 22 cm^2 10 - 18 Vol, ES, 1-p A4C 67 ml --------- Vol/bsa, ES, 1-p A4C (N) 28 ml/m^2 11 - 39 Aortic valve Value Ref Peak v, S 1.5 m/sec --------- Mean v, S 1.05 m/sec --------- VTI, S 27.0 cm --------- Mean grad, S 5 mm Hg --------- Peak grad, S 9 mm Hg --------- LVOT/AV, VTI ratio 0.63 --------- SHERRI, VTI 2.8 cm^2 --------- SHERRI/bsa, VTI 1.19 cm^2/m^2 --------- LVOT/AV, Vpeak ratio 0.61 --------- SHERRI, Vmax 2.8 cm^2 --------- SHERRI/bsa, Vmax 1.16 cm^2/m^2 --------- Mitral valve Value Ref Peak E 0.8 m/sec --------- Peak A 0.94 m/sec --------- Peak grad, D 3 mm Hg --------- Peak E/A ratio 0.9 --------- Pulmonic valve Value Ref Peak v, S 1.12 m/sec --------- Peak grad, S 5 mm Hg --------- Tricuspid valve Value Ref Peak E 0.57 m/sec --------- TR peak v (N) 2.8 m/sec <=2.8 Peak RV-RA grad, S 32 mm Hg --------- Aortic root Value Ref Root diam, 3.5 cm --------- Ascending aorta Value Ref AAo AP diam, S 3.0 cm --------- AAo AP diam/bsa, S 1.3 cm/m^2 --------- Pulmonary artery Value Ref Pressure, S 37 mm Hg --------- Systemic veins Value Ref Estimated RA pressure 5 mm Hg --------- Legend: (L) and (H) delonte values outside specified reference range. (N) bond values inside specified reference range. Procedure data: [facility] [facility] No prior study was available for comparison. Study status: Routine. Procedure information: A transthoracic echocardiogram was performed. Image quality was technically difficult, The study was technically limited due to poor acoustic window availability. Scanning was performed from the parasternal, apical, and subcostal acoustic windows. Intravenous contrast (Definity) was administered to enhance endocardial border detection that was not seen in two consecutive segments due to suboptimal baseline images and opacify the LV. A bubble study was performed with agitated saline. Transthoracic echocardiogram. Complete 2D, complete spectral Doppler, and color Doppler. Images were not appropriate for strain imaging. Birthdate: Patient birthdate: 1965. Age: Patient is 58year(s) old. Sex: gender: male. Height: 188cm. 74in. Weight: 111.3kg. 245.4lb. Body mass index: 31.5kg/m^2. Body surface area: 2.37m^2. Heart rate: 87bpm. Blood pressure: 146/82 Patient status: Inpatient. Study date: Study date: 10/02/2024. Study time: 07:57 AM. Location: Bedside. Prepared and Electronically Authenticated Jonathan Mckeon [id number] Procedure Note Jonathan Mckeon MD - 10/02/2024 Transthoracic Echocardiogram Patient: Yahir Meeks Study ID: [id number] Gender: M : 1965 Age: 58 Race: CAU Height 188cm Study Date: 10/02/2024 Weight: 111.3kg Access. #: [id number] BP: 146 / 82 *Referring Physician:* Tyrone Mcallister *Ordering Physician:* Tyrone Mcallister *Shoe Puller:* Hao Barcenas RDCS,[facility] fiber locking supervisor: Nurse: Indications: Cerebrovascular accident. STUDY CONCLUSIONS: SUMMARY: - Left ventricle: The cavity size was normal. Wall thickness was increasedin a pattern of mild LVH. Global systolic function is normal. For Epic reporting: the left ventricular ejection fraction is 57% . Focalapical dyskinesis. No clear left ventricular apical thrombus noted. - Left atrium: The atrium is normal in size. - Right ventricle: The cavity size is normal. Systolic function isnormal. - Atrial septum: Agitated saline contrast study at baseline or with provocation, shows no tshmu-bf-[id number] atrial level shunt. - Tricuspid valve: Trivial regurgitation. - Pulmonary arteries: The peak systolic pressure is 37mm Hg. Cardiac Anatomy: LEFT VENTRICLE: The cavity size was normal. Wall thickness was increasedin a pattern of mild LVH. Global systolic function is normal. For Epicreporting: the left ventricular ejection fraction is 57% . Focal apical dyskinesis.No clear left ventricular apical thrombus noted. AORTIC VALVE: Structurally normal valve. Trileaflet. No significant regurgitation. The mean systolic gradient is 5mm Hg. The peak systolic gradient is 9mm Hg. The LVOT to aortic valve VTI ratio is 0.63. The valvearea is 2.8cm^2. The ratio of LVOT to aortic valve peak velocity is 0.61. AORTA: Aortic root: The root is normal-sized. MITRAL VALVE: Structurally normal valve. No significantregurgitation. The peak diastolic gradient is 3mm Hg. LEFT ATRIUM: The atrium is normal in size. ATRIAL SEPTUM: Agitated saline contrast study at baseline or with provocation, shows no padfn-qm-muga atrial level shunt. RIGHT VENTRICLE: The cavity size is normal. Systolic function isnormal. PULMONIC VALVE: Structurally normal valve. No significantregurgitation. TRICUSPID VALVE: Structurally normal valve. Trivial regurgitation. RIGHT ATRIUM: The atrium was normal in size. SYSTEMIC VEINS: Inferior vena cava: The IVC is normal-sized. PERICARDIUM: There is no pericardial effusion. Measurements Left ventricle Value Ref IVS, ED, LAX (H) 1.2 cm 0.6 - 1.0 MARY, LAX (L) 3.9 cm 4.2 - 5.8 MARY/bsa, LAX (L) 1.6 cm/m^2 2.2 - 3.0 MARY, LAX chord (N) 5.7 cm 4.2 - 5.8 ESD, LAX chord (N) 3.9 cm 2.5 - 4.0 MAYR/bsa, LAX chord (N) 2.4 cm/m^2 2.2 - 3.0 ESD/bsa, LAX chord (N) 1.6 cm/m^2 1.3 - 2.1 FS, LAX chord (N) 32 % 25 - 43 IVS, ED (H) 1.2 cm 0.6 - 1.0 PW, ED (H) 1.2 cm 0.6 - 1.0 EDV, 2-p (N) 133 ml 62 - 150 ESV, 2-p (N) 55 ml 21 - 61 EF, 2-p (N) 59 % 52 - 72 SV, 2-p 78 ml --------- SV/bsa, 2-p 32.9 ml/m^2 --------- E', med taz, TDI (N) 9.0 cm/sec >=7.0 E/e', med taz, TDI 9 --------- LVOT Value Ref Diam, S 2.4 cm --------- Area 4.5 cm^2 --------- Peak jenn, S 0.9 m/sec --------- VTI, S 16.9 cm --------- Right ventricle Value Ref MARY minor ax, A4C base (N) 4.0 cm 2.5 - 4.1 MARY minor ax, A4C mid (N) 3.4 cm 1.9 - 3.5 MARY major ax, A4C (N) 7.8 cm 5.9 - 8.3 TAPSE, MM (N) 2.5 cm >=1.7 Pressure, S 37 mm Hg --------- S' lateral (N) 16.4 cm/sec >=9.5 Left atrium Value Ref AP dim, ES (L) 2.9 cm 3.0 - 4.0 AP dim index, ES (L) 1.2 cm/m^2 1.5 - 2.3 SI dim, A4C 6.1 cm --------- Area ES, A4C (H) 24 cm^2 <=20 Area/bsa ES, A4C 10 cm^2/m^2 --------- SI dim, A2C 5.7 cm --------- SI dim, shorter 5.7 cm --------- Vol, ES, 1-p A2C (H) 69 ml 18 - 58 Vol/bsa, ES, 1-p A2C (N) 29 ml/m^2 11 - 43 Vol, ES, 2-p 73 ml --------- Vol/bsa, ES, 2-p (N) 31 ml/m^2 16 - 34 LA/Ao root ratio 0.83 --------- Right atrium Value Ref SI dim, ES, A4C (H) 5.4 cm 3.4 - 5.3 SI dim/bsa, ES, A4C (N) 2.3 cm/m^2 1.8 - 3.0 Area, ES, A4C (H) 22 cm^2 10 - 18 Vol, ES, 1-p A4C 67 ml --------- Vol/bsa, ES, 1-p A4C (N) 28 ml/m^2 11 - 39 Aortic valve Value Ref Peak v, S 1.5 m/sec --------- Mean v, S 1.05 m/sec --------- VTI, S 27.0 cm --------- Mean grad, S 5 mm Hg --------- Peak grad, S 9 mm Hg --------- LVOT/AV, VTI ratio 0.63 --------- SHERRI, VTI 2.8 cm^2 --------- SHERRI/bsa, VTI 1.19 cm^2/m^2 --------- LVOT/AV, Vpeak ratio 0.61 --------- SHERRI, Vmax 2.8 cm^2 --------- SHERRI/bsa, Vmax 1.16 cm^2/m^2 --------- Mitral valve Value Ref Peak E 0.8 m/sec --------- Peak A 0.94 m/sec --------- Peak grad, D 3 mm Hg --------- Peak E/A ratio 0.9 --------- Pulmonic valve Value Ref Peak v, S 1.12 m/sec --------- Peak grad, S 5 mm Hg --------- Tricuspid valve Value Ref Peak E 0.57 m/sec --------- TR peak v (N) 2.8 m/sec <=2.8 Peak RV-RA grad, S 32 mm Hg --------- Aortic root Value Ref Root diam, 3.5 cm --------- Ascending aorta Value Ref AAo AP diam, S 3.0 cm --------- AAo AP diam/bsa, S 1.3 cm/m^2 --------- Pulmonary artery Value Ref Pressure, S 37 mm Hg --------- Systemic veins Value Ref Estimated RA pressure 5 mm Hg --------- Legend: (L) and (H) delonte values outside specified reference range. (N) bond values inside specified reference range. Procedure data: [facility] No prior study was available for comparison. Studystatus: Routine. Procedure information: A transthoracic echocardiogram was performed. Image quality was technically difficult, The study wastechnically limited due to poor acoustic window availability. Scanning was performedfrom the parasternal, apical, and subcostal acoustic windows. Intravenouscontrast (Definity) was administered to enhance endocardial border detection thatwas not seen in two consecutive segments due to suboptimal baseline imagesand opacify the LV. A bubble study was performed with agitated saline. Transthoracic echocardiogram. Complete 2D, complete spectral Doppler,and color Doppler. Images were not appropriate for strain imaging.Birthdate: Patient birthdate: 1965. Age: Patient is 58year(s) old. Sex: gender: male. Height: 188cm. 74in. Weight: 111.3kg. 245.4lb. Bodymass index: 31.5kg/m^2. Body surface area: 2.37m^2. Heart rate:87bpm. Blood pressure: 146/82 Patient status: Inpatient. Study date:Study date: 10/02/2024. Study time: 07:57 AM. Location: Bedside. Preparedand Electronically Authenticated Jonathan Mckeon [id number] us Tyrone Mcallister NP US ORDERABLES Final Result INTERFACE SYSTEM Refer to clinic/hospital department * PROCALCITONIN (10/02/2024 8:28 AM CDT) PROCALCITONIN 0.11 <2.01 ng/mL 10/02/2024 1:53 PM CDT [facility] LABORATORY SERVICES [facility] Blood Venipuncture / Unknown 10/02/2024 8:28 AM CDT 10/02/2024 8:44 AM CDT Narrative [facility] - 10/02/2024 1:53 PM CDT The utility of procalcitonin is limited/NOT recommended in certain populations (e.g. newborns, dialysis/ESRD, patients with recent major surgery/trauma/galeana, liver cirrhosis, viral hepatitis, certain cancers, etc.). Procalcitonin levels MUST be interpreted in the context of the patient's clinical condition and CANNOT be solely relied upon for diagnosis of infection. <0.25 ng/mL: Bacterial infection unlikely, particularly lower respiratory tract infections. <0.5 ng/mL: Low risk for progression to severe sepsis/septic shock. Localized infection possible. Measurements done early (<6 hours) after systemic process starts may still be low. 0.5-2 ng/mL: Moderate risk for progression to severe sepsis/septic shock. >2 ng/mL: High risk for progression to severe sepsis/septic shock. If antibiotics ARE administered, repeat testing is recommended every 2-3 days to help guide antibiotic cessation. Once a decrease of 80% or more has occurred from baseline, discontinuation of antibiotics should strongly be considered in clinically stable patients. Procalcitonin is produced in the setting of systemic inflammation, particularly bacterial infections. It is detectable within 2-4 hours and peaks within 6-24 hours. Suresh Morgan MD CHEMISTRY ORDERABLES Final Result [facility] CLIA# [id number] [place] [address] * (ABNORMAL) C-REACTIVE PROTEIN (10/02/2024 8:28 AM CDT) [facility] CRP 23.4(H) <5.0 mg/L 10/02/2024 1:41 PM CDT [facility] Blood Venipuncture / Unknown 10/02/2024 8:28 AM CDT 10/02/2024 8:44 AM CDT Suresh Morgan MD CHEMISTRY ORDERABLES Final Result [facility] [id number] [place] [address] * (ABNORMAL) HEMOGLOBIN A1C (10/02/2024 3:50 AM CDT) HEMOGLOBIN A1C 6.4(H) <=5.6 % 10/02/2024 4:40 AM CDT [facility] [employer] [facility] EST. AVG GLUCOSE, A1C 137 mg/dL 10/02/2024 4:40 AM CDT [facility] Blood Venipuncture / Unknown 10/02/2024 3:50 AM CDT 10/02/2024 4:21 AM CDT Narrative [facility] - 10/02/2024 4:40 AM CDT HGB A1C INTERPRETATION NORMAL: <5.7% PRE-DIABETES: 5.7 - 6.4% DIABETES: 6.5% OR GREATER Tyrone Mcallister NP CHEMISTRY ORDERABLES Final Re sult Performing Organization Address City/[facility]/ZIP Co de Phone Number [facility]# [id number] [place] [address] * (ABNORMAL) LIPID PANEL (10/02/2024 3:50 AM CDT) CHOLESTEROL 178 <200 mg/dL 10/02/2024 4:52 AM CDT [facility] [employer] [facility] TRIGLYCERIDE 150(H) <150 mg/dL 10/02/2024 4:52 AM CDT [facility] HDL 32(L) 40 - 59 mg/dL 10/02/2024 4:52 AM CDT [facility] LDL CALCULATED 116(H) <100 mg/dL 10/02/2024 4:52 AM CDT [facility] NON-HDL CHOLESTEROL 146(H) <130 mg/dL 10/02/2024 4:52 AM CDT [facility] [employer] [facility] Blood Venipuncture / Unknown 10/02/2024 3:50 AM CDT 10/02/2024 4:21 AM CDT [facility] [employer] [facility] - 10/02/2024 4:52 AM CDT TOTAL CHOLESTEROL mg/dL Desirable <200 Borderline high 200-239 High >=240 TRIGLYCERIDES mg/dL Normal <150 Borderline high 150-199 High 200-499 Very high >=500 HDL CHOLESTEROL mg/dL Low <40 Normal 40-59 Desirable >=60 NON HDL CHOLESTEROL mg/dL Optimal <130 Near Optimal 130-159 Borderline High 160-189 Very High >=190 CALCULATED LDL mg/dL LDL <70, OPTIMAL if have Atherosclerotic cardiovascular disease (ASCVD) or intermediate or higher (>7.5%) 10 year risk of ASCVD including most adults with diabetes. LDL <100, Optimal in adult patients with low (<7.5%) 10 year ASCVD risk LDL 100-160, Suboptimal LDL >160, High LDL >190, Very high LDL calculated using the Friedewald equation. ATPIII Guidelines Reference Ranges for Lipid Panels (NCEP/AMA) . us Tyrone Mcallister NP CHEMISTRY ORDERABLES Final Re sult [facility] [employer] [facility] CLIA# [id number] [place] [address] * (ABNORMAL) TROPONIN 6 HR, 5TH GEN (10/02/2024 1:21 AM CDT) TROPONIN T, 6 HR 5TH GEN 17(H) <=15 ng/L 10/02/2024 2:01 AM CDT [facility] [employer] [facility] DELTA 6HR TROPONIN T -2 See Interp. 10/02/2024 2:01 AM CDT [facility] [employer] [facility] Blood Venipuncture / Unknown 10/02/2024 1:21 AM CDT 10/02/2024 1:32 AM CDT [facility] LABORATORY [facility] - 10/02/2024 2:01 AM CDT Troponin elevated. Delta indeterminate. us America Hernandez MD CHEMISTRY ORDERABLES Final Resul t [facility] CLIA# [id number] [address] [place] [address] * EKG 12-LEAD (10/01/2024 11:38 PM CDT) Only the most recent of2 resultswithin the time period is included. 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: [id number] : 1965 Requested By: AMERICA HERNANDEZ Order Number: [id number] Reading : Tito Teran Measurements Intervals Radiant Rate: 88 P: 69 AR: 146 QRS: 20 QRSD: 80 T: 37 QT: 378 QTc: 457 Interpretive Statements Normal sinus rhythm Possible Left atrial enlargement Possible Anterior infarct, age undetermined Abnormal ECG Compared to ECG 10/01/2024 19:05:40 ST (T wave) deviation no longer present Electronically Signed On 10-02-2024 7:33:09 CDT by Tito Teran America Hernandez MD ECG ORDERABLES Final Result INTERFACE SYSTEM Refer to clinic/hospital department * US VENOUS DOPPLER LEG BILATERAL (10/01/2024 10:53 PM CDT) Anatomical Region Laterality Modality Lower Extremity Ultrasound 10/01/2024 10:5 3 PM CDT Impressions 10/01/2024 10:58 PM CDT IMPRESSION: No evidence of deep venous thrombosis. DICTATION LOCATION: Location [address] [place] [address] Narrative 10/01/2024 10:58 PM CDT DUPLEX EXAMINATION OF THE BILATERAL LOWER EXTREMITY DEEP VEINS DATE: 10/01/2024 10:53 PM HISTORY: Other - Please see comments, Comment: Strokes FINDINGS: Duplex sonography with color Doppler and spectral analysis waveform interrogation was performed to evaluate the deep venous system of the bilateral lower extremity(ies). Doppler signals are obtained from the upper saphenous, common femoral, the proximal, mid and distal femoral, proximal profunda, popliteal and posterior tibial/peroneal veins. With transverse compression throughout those areas, the lumen is obliterated, excluding intraluminal thrombus. Augmentation is normal. Left popliteal fossa cyst is present measuring 4.7 x 1.4 x 2.4 cm. Procedure Note Philip Galeana MD - 10/01/2024 DUPLEX EXAMINATION OF THE BILATERAL LOWER EXTREMITY DEEP VEINS DATE: 10/01/2024 10:53 PM HISTORY: Other - Please see comments, Comment: Strokes FINDINGS: Duplex sonography with color Doppler and spectral analysis waveform interrogation was performed to evaluate the deep venous system of the bilateral lower extremity(ies). Doppler signals are obtained from the upper saphenous, common femoral, the proximal, mid and distal femoral, proximal profunda, popliteal and posterior tibial/peroneal veins. With transverse compression throughout those areas, the lumen is obliterated, excluding intraluminal thrombus. Augmentation is normal. Left popliteal fossa cyst is present measuring 4.7 x 1.4 x 2.4 cm. IMPRESSION: No evidence of deep venous thrombosis. DICTATION LOCATION: Location [address] [place] [address] Andres Rodriguez MD US ORDERABLES Final Result * EXTRA TUBE (URINE BLANCO) (10/01/2024 10:18 PM CDT) Urine URINE SPECIMEN OBTAINED BY CLEAN CATCH PROCEDURE / Unknown Collection / Unknown 10/01/2024 10:18 PM CDT 10/01/2024 10:29 PM CDT America Hernandez MD URINE ORDERABLES Final Result [facility] CLIA# [id number] [place] [address] * (ABNORMAL) DRUG SCREEN, URINE (10/01/2024 10:18 PM CDT) Pathologist [facility] AMPHETAMINE QUAL, URINE Presumptive Positive(A) Negative 10/01/2024 10:54 PM CDT [facility] LABORAT[facility] BARBITURATE QUAL, URINE Negative Negative 10/01/2024 10:54 PM CDT [facility] BENZODIAZEPINE QUAL, URINE Negative Negative 10/01/2024 10:54 PM CDT [facility] COCAINE QUAL URINE Negative Negative 10/01/2024 10:54 PM CDT [facility] OPIATE QUAL, URINE Negative Negative 10/01/2024 10:54 PM CDT [facility] CANNABINOIDS QUAL, URINE Presumptive Positive(A) Negative 10/01/2024 10:54 PM CDT [facility] PCP QUAL, URINE Negative Negative 10:54 PM CDT [facility] OXYCODONE QUAL, URINE Negative Negative 10/01/2024 10:54 PM CDT [facility] METHADONE QUAL, URINE Negative Negative 10/01/2024 10:54 PM CDT [facility] FENTANYL QUAL, URINE Negative Negative 10/01/2024 10:54 PM CDT [facility] CREATININE, URINE 184.0 40.0 - 278.0 mg/dL 10/01/2024 10:54 PM CDT [facility] Comment:Reference Range vari es with fluid intake and diet. Urine URINE SPECIMEN OBTAINED BY CLEAN CATCH PROCEDURE / Unknown Collection / Unknown 10/01/2024 10:18 PM CDT 10/01/2024 10:29 PM CDT Narrative [facility] - 10/01/2024 10:54 PM CDT This test is a qualitative screen. The presumptive positive results should not be used for legal purposes. If confirmation of results is desired, the lab must be contacted without delay. Drug Ref. Range Screening Threshold Amphetamines Negative 500 ng/mL Barbiturates Negative 200 ng/mL Benzodiazepines Negative 100 ng/mL Cannabinoids Negative 50 ng/mL Cocaine Negative 150 ng/mL Methadone Negative 300 ng/mL Opiates Negative 300 ng/mL Oxycodone Negative 100 ng/mL Phencyclidine Negative 25 ng/mL Fentanyl Negative 5 ng/mL America Hernandez MD URINE ORDERABLES Final Result [facility] CLIA# [id number] [place] [address] * (ABNORMAL) URINALYSIS WITH REFLEX MICROSCOPIC (10/01/2024 10:18 PM CDT) COLOR UA Yellow Pale to Dark Yellow 10/01/2024 11:56 PM CDT [facility] CLARITY UA Slightly Cloudy(A) Clear 10/01/2024 11:56 PM CDT [facility] SPECIFIC GRAVITY UA >1.035(H) 1.003 - 1.035 10/01/2024 11:56 PM CDT [facility] PH UA 5.0 5.0 - 8.0 10/01/2024 11:56 PM CDT [facility] LEUKOCYTE ESTERASE UA Negative Negative 10/01/2024 11:56 PM CDT [facility] NITRITE UA Negative Negative 10/01/2024 11:56 PM CDT [facility] PROTEIN UA 1+(A) Negative 10/01/2024 11:56 PM CDT [facility] GLUCOSE UA Negative Negative 10/01/2024 11:56 PM CDT [facility] KETONES UA Negative Negative 10/01/2024 11:56 PM CDT [facility] UROBILINOGEN UA Normal <2.0 mg/dL 11:56 PM CDT [facility] BILIRUBIN UA Negative Negative 10/01/2024 11:56 PM CDT [facility] BLOOD UA Negative Negative 10/01/2024 11:56 PM CDT [facility] WBC UA 11-25(A) 0 - 2 /hpf 10/01/2024 11:56 PM CDT [facility] RBC UA 51-100(A) 0 - 2 /hpf 10/01/2024 11:56 PM CDT [facility] BACTERIA UA 1+(A) Negative /hpf 10/01/2024 11:56 PM CDT [facility] EPITHELIAL CELLS, URINE 0-5 0 - 5 /hpf 10/01/2024 11:56 PM CDT [facility] HYALINE CAST None Seen None Seen, 0-2 /lpf 10/01/2024 11:56 PM CDT [facility] Urine URINE SPECIMEN OBTAINED BY CLEAN CATCH PROCEDURE / Unknown Collection / Unknown 10/01/2024 10:18 PM CDT 10/01/2024 10:29 PM CDT us America Hernandez MD URINE ORDERABLES Final Result [facility] CLIA# [id number] [address] [address] * (ABNORMAL) TROPONIN 2 HR, 5TH GEN (10/01/2024 10:13 PM CDT) TROPONIN T, 2 HR 5TH GEN 17(H) <=15 ng/L 10/01/2024 10:47 PM CDT [facility] DELTA 2HR TROPONIN T -2 See Interp. 10/01/2024 10:47 PM CDT [facility] Blood Venipuncture / Unknown 10/01/2024 10:13 PM CDT 10/01/2024 10:20 PM CDT Narrative [facility] - 10/01/2024 10:47 PM CDT Troponin elevated. Delta not changing. Delay in collection of timed specimen beyond recommended collection interval. Results must be interpreted in clinical context. America Hernandez MD CHEMISTRY ORDERABLES Final Resul t [facility] CLIA# [id number] [place] [address] * TYPE AND SCREEN (10/01/2024 8:38 PM CDT) ABO GROUP AB 10/01/2024 10:05 PM CDT [facility] RH (D) TYPE Positive 10/01/2024 10:05 PM CDT [facility] ANTIBODY SCREEN Negative 10/01/2024 10:05 PM CDT [facility] Blood Venipuncture / Unknown 10/01/2024 8:38 PM CDT 10/01/2024 8:47 PM CDT America Hernandez MD BLOOD BANK ORDERABLES Edited Res ult - Final [facility] CLIA# [id number] [place] [address] * MRI BRAIN HYPERACUTE FOR STROKE (10/01/2024 8:15 PM CDT) Anatomical Region Laterality Modality Head Magnetic Resonan ce 10/01/2024 8:16 PM CDT Impressions 10/01/2024 11:26 PM CDT IMPRESSION: 1. Diffusion restriction present within the cerebellum bilaterally right greater than left with associated or signal abnormality consistent with acute infarct. 2. Additional areas of diffusion restriction present in medial aspect of the occipital lobes and tiny focus in the left frontal white matter present. Critical findings were discussed with stroke RN on 10/01/2024 8:22 PM. DICTATION LOCATION: [address] Narrative 10/01/2024 11:26 PM CDT MRI BRAIN HYPERACUTE FOR STROKE DATE: 10/01/2024 8:15 PM HISTORY: Neuro deficit, acute, stroke suspected. TECHNIQUE: Multiplanar images of the brain were obtained without contrast according to hyperacute protocol. FINDINGS: There is multiple foci of diffusion restriction within the cerebellum bilaterally most prominent on the right with associated mild FLAIR signal abnormality noted consistent with acute infarct. There is a tiny focus of diffusion restriction present within the left frontal white matter, series 2, image 16. There is also mild diffusion restriction present in medial aspect of the right and minimally of the left occipital lobe. No susceptibility artifact is identified. There is fluid opacifying the mastoid air cells. Procedure Note Philip Galeana MD - 10/01/2024 MRI BRAIN HYPERACUTE FOR STROKE DATE: 10/01/2024 8:15 PM HISTORY: Neuro deficit, acute, stroke suspected. TECHNIQUE: Multiplanar images of the brain were obtained without contrast according to hyperacute protocol. FINDINGS: There is multiple foci of diffusion restriction within the cerebellum bilaterally most prominent on the right with associated mild FLAIR signal abnormality noted consistent with acute infarct. There is a tiny focus of diffusion restriction present within the left frontal white matter, series 2, image 16. There is also mild diffusion restriction present in medial aspect of the right and minimally of the left occipital lobe. No susceptibility artifact is identified. There is fluid opacifying the mastoid air cells. IMPRESSION: 1. Diffusion restriction present within the cerebellum bilaterally right greater than left with associated or signal abnormality consistent with acute infarct. 2. Additional areas of diffusion restriction present in medial aspect of the occipital lobes and tiny focus in the left frontal white matter present. Critical findings were discussed with stroke RN on 10/01/2024 8:22 PM. DICTATION LOCATION: [address] Andres Rodriguez MD MR ORDERABLES Final Result * CT CEREBRAL PERFUSION STDY W CONT (10/01/2024 7:53 PM CDT) Anatomical Region Laterality Modality Head Computed Tomogra phy 10/01/2024 7:35 PM CDT Impressions 10/01/2024 9:39 PM CDT IMPRESSION: Questionable ischemia in the right cerebellum and right occipital lobe. DICTATION LOCATION: [address] Narrative 10/01/2024 9:[address] PERFUSION OF THE BRAIN DATE: 10/01/2024 7:53 PM HISTORY: Transient ischemic attack (TIA). COMPARISON: No prior studies are available for comparison. TECHNIQUE: After the administration of 40 ml of Isovue 370, CT perfusion imaging of the brain was performed per protocol. Time to peak, mean transit time, blood flow and blood volume images were obtained with post processing on an independent workstation with RAPID post processing. The examination was performed with the adjustment of mA according to the patient size and/or the use of Iterative Reconstruction Technique. FINDINGS: In the right cerebellum and the right occipital lobe there is Tmax greater than six seconds measuring 19 mL with normal cerebral blood flow. INCIDENTAL FINDINGS: None. Procedure Note Poncho Dooley MD - 10/01/2024 CT PERFUSION OF THE BRAIN DATE: 10/01/2024 7:53 PM HISTORY: Transient ischemic attack (TIA). COMPARISON: No prior studies are available for comparison. TECHNIQUE: After the administration of 40 ml of Isovue 370, CT perfusion imaging of the brain was performed per protocol. Time to peak, mean transit time, blood flow and blood volume images were obtained with post processing on an independent workstation with RAPID post processing. The examination was performed with the adjustment of mA according to the patient size and/or the use of Iterative Reconstruction Technique. FINDINGS: In the right cerebellum and the right occipital lobe there is Tmax greater than six seconds measuring 19 mL with normal cerebral blood flow. INCIDENTAL FINDINGS: None. IMPRESSION: Questionable ischemia in the right cerebellum and right occipital lobe. DICTATION LOCATION: [address] us Andres Rodriguez MD CT ORDERABLES Final Result * CTA HEAD AND NECK W AND/OR WO CONTRAST (10/01/2024 7:35 PM CDT) Anatomical Region Laterality Modality Head Computed Tomogra phy 10/01/2024 7:28 PM CDT Impressions 10/01/2024 9:48 PM CDT IMPRESSION: 1.No intracranial large vessel occlusion or cervical ICA stenosis 2. 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 DICTATION LOCATION: [address] 10/01/2024 9:[address] ANGIOGRAM OF THE HEAD AND NECK WITH AND WITHOUT IV CONTRAST DATE: 10/01/2024 7:35 PM HISTORY: Stroke/TIA, assess for intracardiac shunt. TECHNIQUE: Multiple contiguous axial images are taken through the head and neck before and after the administration of 90 ml of Isovue 370. Post processing coronal, sagittal and MIP images were obtained on an independent workstation. RAPID LVO detection software was utilized. The examination was performed with the adjustment of mA according to the patient size and/or the use of Iterative Reconstruction Technique. FINDINGS: There is mural thrombus in the aortic arch and descending thoracic aorta measuring 6-7 mm. This is seen on axial images 37-32 and 4-8. The origins of the great vessels appear patent. The bilateral common carotid arteries are normal in contour and caliber.. There is calcified plaque in the bilateral carotid bulbs and proximal internal carotid arteries without significant stenosis. The bilateral internal carotid arteries are normal in contour and caliber throughout their cervical course. 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 The bilateral middle cerebral arteries are normal in contour and caliber. No filling defects identified. The bilateral anterior cerebral arteries are normal in contour and caliber. The vertebral arteries are normal in contour and caliber. The basilar artery is normal in contour and caliber. The posterior fossa circulation is unremarkable. The bilateral posterior cerebral arteries are normal in contour and caliber with origin right posterior cerebral artery. INCIDENTAL FINDINGS: None. Procedure Note Poncho Dooley MD - 10/01/2024 CT ANGIOGRAM OF THE HEAD AND NECK WITH AND WITHOUT IV CONTRAST DATE: 10/01/2024 7:35 PM HISTORY: Stroke/TIA, assess for intracardiac shunt. TECHNIQUE: Multiple contiguous axial images are taken through the head and neck before and after the administration of 90 ml of Isovue 370. Post processing coronal, sagittal and MIP images were obtained on an independent workstation. RAPID LVO detection software was utilized. The examination was performed with the adjustment of mA according to the patient size and/or the use of Iterative Reconstruction Technique. FINDINGS: There is mural thrombus in the aortic arch and descending thoracic aorta measuring 6-7 mm. This is seen on axial images 37-32 and 4-8. The origins of the great vessels appear patent. The bilateral common carotid arteries are normal in contour and caliber.. There is calcified plaque in the bilateral carotid bulbs and proximal internal carotid arteries without significant stenosis. The bilateral internal carotid arteries are normal in contour and caliber throughout their cervical course. 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 The bilateral middle cerebral arteries are normal in contour and caliber. No filling defects identified. The bilateral anterior cerebral arteries are normal in contour and caliber. The vertebral arteries are normal in contour and caliber. The basilar artery is normal in contour and caliber. The posterior fossa circulation is unremarkable. The bilateral posterior cerebral arteries are normal in contour and caliber with origin right posterior cerebral artery. INCIDENTAL FINDINGS: None. IMPRESSION: 1.No intracranial large vessel occlusion or cervical ICA stenosis 2. 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 DICTATION LOCATION: [address] Andres Rodriguez MD CT ORDERABLES Final Result * CT HEAD WO CONTRAST STROKE PROTOCOL (10/01/2024 7:25 PM CDT) Anatomical Region Laterality Modality Head Computed Tomogra phy 10/01/2024 7:25 PM CDT Impressions 10/01/2024 7:29 PM CDT IMPRESSION: No acute intracranial abnormality. Critical findings were discussed with Stroke RN at 10/01/2024 7:26 PM. DICTATION LOCATION: [address] Narrative 10/01/2024 7:29 PM CDT COMPUTED TOMOGRAPHY SCAN OF THE HEAD WITHOUT CONTRAST DATE: 10/01/2024 7:25 PM HISTORY: Neuro deficit, acute, stroke suspected, Stroke COMPARISON: No comparison TECHNIQUE: Standard noncontrast CT was performed with contiguous axial images acquired from skull base to vertex The examination was performed with the adjustment of mA according to the patient size and/or the use of Iterative Reconstruction Technique. FINDINGS: There is no extra-axial fluid collection. The ventricles are of normal size, shape and morphology. No mass effect or midline shift is present. No evidence of acute hemorrhage. The blanco-white matter differentiation is normal. The visualized portions of the orbits and the paranasal sinuses and mastoids are normal. No fractures are identified. Procedure Note Philip Galeana MD - 10/01/2024 COMPUTED TOMOGRAPHY SCAN OF THE HEAD WITHOUT CONTRAST DATE: 10/01/2024 7:25 PM HISTORY: Neuro deficit, acute, stroke suspected, Stroke COMPARISON: No comparison TECHNIQUE: Standard noncontrast CT was performed with contiguous axial images acquired from skull base to vertex The examination was performed with the adjustment of mA according to the patient size and/or the use of Iterative Reconstruction Technique. FINDINGS: There is no extra-axial fluid collection. The ventricles are of normal size, shape and morphology. No mass effect or midline shift is present. No evidence of acute hemorrhage. The blanco-white matter differentiation is normal. The visualized portions of the orbits and the paranasal sinuses and mastoids are normal. No fractures are identified. IMPRESSION: No acute intracranial abnormality. Critical findings were discussed with Stroke RN at 10/01/2024 7:26 PM. DICTATION LOCATION: [address] us America Hernandez MD CT ORDERABLES Final Result * (ABNORMAL) TROPONIN BASELINE, 5TH GEN (10/01/2024 7:17 PM CDT) TROPONIN T, BASELINE 5TH GEN 19(H) <=15 ng/L 10/01/2024 7:57 PM CDT [facility] Blood Venipuncture / Unknown 10/01/2024 7:17 PM CDT 10/01/2024 7:26 PM CDT Narrative [facility] - 10/01/2024 7:57 PM CDT Troponin elevated. us America Hernandez MD CHEMISTRY ORDERABLES Final Resul t [facility] CLIA# [id number] [place] [address] * PROTIME-INR (10/01/2024 7:17 PM CDT) PROTIME 12.7 11.5 - 14.7 Seconds 10/01/2024 7:47 PM CDT [facility] INR 0.9 0.9 - 1.1 10/01/2024 7:47 PM CDT [facility] Blood Venipuncture / Unknown 10/01/2024 7:17 PM CDT 10/01/2024 7:22 PM CDT America Hernandez MD HEMATOLOGY ORDERABLES Final Resu lt [facility] [employer] [facility] CLIA# [id number] [place] [address] * Critical Care (10/01/2024 6:56 PM CDT) Narrative America Hernandez MD - 10/01/2024 6:56 PM CDT America Hernandez MD 10/02/2024 3:33 AM Critical Care Performed by: America Hernandez MD Authorized by: America Hernandez MD Critical care provider statement: Critical care time (minutes): 35 Critical care time was exclusive of: Separately billable procedures and treating other patients Critical care was necessary to treat or prevent imminent or life-threatening deterioration of the following conditions: PRECISION MACHINIST failure or compromise Critical care was time spent personally by me on the following activities: Development of treatment plan with patient or surrogate, evaluation of patient's response to treatment, ordering and performing treatments and interventions, ordering and review of laboratory studies, ordering and review of radiographic studies, pulse oximetry, re-evaluation of patient's condition, review of old charts, examination of patient, obtaining history from patient or surrogate and discussions with consultants I assumed direction of critical care for this patient from another provider in my specialty: no Care discussed with: admitting provider America Hernandez MD PROCEDURE/MINOR SURGICAL ORDERAB LES Final Result from Last 3 Months Insurance Medicaid RX BANSAL PLANS (INTERNAL) [facility] [employer] Commercial RX JONO FUND (INTERNAL) [facility] [employer] RX [employer] Medicaid [employer] Commercial Advance Directives For more information, please contact: [phone] * Full Code (Latest Code Status on File) Date Activated Date Inactivated Comments 10/01/2024 9:50 PM 10/16/2024 3:50 PM Care Teams Proof Carrier Relationship Specialty Start Date End Date Analy Willis MD [address] [place] [address] PCP - General Family Practice 11/12/24
--- OUTSIDE RECORDS SUMMARY | 2024-11-21 13:11 | XMS_ITS | Encounter Summary ---
Author Organization [facility] Address [address] [place] [address] Care Team Providers Care Slot Machine Department Floorperson Name Role Phone Unavailable Primary Care Provider Unavailabl e Encounter Details Date Type Department Care Team (Late st Contact Info) Description 10/25/2018 Abstract [facility] CONVERSION [address] [place] [address] , Generic Conversion, Social History Tobacco Use Types Packs/Day Years Used Date Smoking Tobacco: Never Assessed Sex and Gender Information Value Date Recorded Sex Assigned at Not on file Legal Sex Male 2:40 PM CDT Gender Identity Not on file Sexual Orientation Not on file documented as of this encounter Plan of Treatment Not on file documented as of this encounter Visit Diagnoses Not on filedocumented in this encounter
--- OUTSIDE RECORDS SUMMARY | 2024-11-21 13:11 | XMS_ITS | Clinical Summary ---
Author Organization [facility] Address [address] [place] [address] Care Team Providers Care Automatic Embroidery Machine Tender Name Role Phone Unavailable Primary Care Provider Unavailabl e Encounters Date Type Department Care Team Description 10/22/2024 Telephone [facility] [address] [address] Jen Jasso, A Appointment Request (Self ref) from Last 3 Months Social History Tobacco Use Types Packs/Day Years Used Date Smoking Tobacco: Never Assessed Sex and Gender Information Value Date Recorded Sex Assigned at Not on file Legal Sex Male 2:40 PM CDT Gender Identity Not on file Sexual Orientation Not on file Plan of Treatment Health Maintenance Due Date Last Done Comments Colorectal Cancer Screening Colonoscopy (10 Years) 1964 Annual Physical 10/29/1967 Hepatitis C 1982 DTaP, Tdap and Td Vaccines ( 1 - Tdap) 10/29/1983 Pneumococcal Vaccine: 50+ Ye ars (1 of 1 - PCV) 2014 Zoster Vaccines (1 of 2) 2014 COVID-19 Vaccine (2023-2 5 season) 2024 RSV Immunization or 60+ Years (1 - 1-dose 75+ series) 10/29/2039 Meningococcal B Vaccine Aged Out No l onger eligible based on patient's age to complete this topic Meningococcal Vaccine Aged Out No ivonne angel eligible based on patient's age to complete this topic RSV Immunizations Under 20 Months Aged Out No longer eligible based on patient's age to complete this topic
== END 2024-11-21 13:08 | disposition home or self-care (01) ==
DX: Z12.2 Encounter for screening for malignant neoplasm of respiratory organs (principal); Z87.891 Personal history of nicotine dependence
CPT/HCPCS: 71271

== ENCOUNTER 2024-12-03 13:09 | Outpatient (CLI) | payer MEDICAID, SELFPAY ==
--- OUTSIDE RECORDS SUMMARY | 2024-12-03 13:12 | XMS_ITS | Clinical Summary ---
Author Organization [facility] Address [address] [place] [id number] Care Team Providers Care Manager Employee Relations Name Role Phone Unavailable Primary Care Provider Unavailabl e Encounters Date Type Department Care Team Description 10/22/2024 Telephone [facility] [address] [id number] Jen Jasso, A Appointment Request (Self ref) [...] Vaccines (1 of 2) 2014 COVID-19 Vaccine ( - 2023-2 5 season) 2024 RSV Immunization or 60+ [...]
--- OUTSIDE RECORDS SUMMARY | 2024-12-03 13:12 | XMS_ITS | Clinical Summary ---
Author Organization [facility] Address [address] [place] [address] Phone Care Team Providers Care Refinisher Name Role Phone Analy Willis MD Primary Care Provider [phone] Allergies No known active allergies Medications amLODIPine [...] PM CDT 5 11/12/19 Discontinu ed(Reorder ) Blood Pressure Monitor KitIndications:E ssential hypertension Monitor [...] 10/01/2024 History of CAD (coronary artery disease) 05/15/2 025 Mixed hyperlipidemia 10/01/2024 Benign hypertension 10/01/2024 Methamphetamine use Essential hypertension H/O acute myocardial infarction Encounters Date Type Department Care Team Description 12/01/2024 Telephone [facility] Neurology [address] [phone] Andres Rodriguez MD question on driving 11/24/2024 External Device Data STL ABSTRACTION Provider, Abstract 11/23/2024 Results Follow-Up [facility] [place] [address] [place] [phone] CHEST F/U LDCT LUNG SCREEN WO CONTRAST 11/23/2024 Orders Only [facility] [place] [address] [place] [phone] Xiomy Stern FNP 11/23/2024 Telephone [facility] [place] [address] [place] [phone] scan report 11/18/2024 Telephone [facility] [address] [facility] [address] [place] [address] SippSandra, Foot Pain 11/17/2024 Telephone [facility] [place] [address] [place] [address] Analy Willis MD Insurance Problem 11/17/2024 External Device Data STL ABSTRACTION Provider, Abstract 11/11/2024 11:45 AM CDT Office Visit [facility] Neurology [address] [phone] Andres Rodriguez MD H/O: stroke with residual effects (Primary Dx); History of cerebellar stroke; 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; Mixed hyperlipidemia; Obesity (BMI 30.0-34.9); Tobacco abuse; Aortic mural thrombus (CMS/HCC); Essential hypertension; ANTHONY (obstructive sleep apnea) 11/11/2024 Refill [facility] [place] [address] [facility] [address] [place] [address] Marina Stern NP Essential hypertension 11/10/2024 Telephone [facility] [place] [address] [facility] [address] [place] [address] Xiomy Stern FNP Electronic Signature Required on Referrals 11/06/[facility] [address] [facility] [address] [place] [address] Tala Westbrook, DO Paperwork 11/04/2024 External Device Data STL ABSTRACTION Provider, Abstract 11/02/2024 3:30 PM CDT Video Visit [facility] [place] [phone] Xiomy Stern FNP Encounter to establish care (Primary Dx); 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 ([facility]/HCC); Right hemiplegia ([facility]); Dysarthria, post-stroke; Essential hypertension; Prediabetes; ANTHONY (obstructive sleep apnea); Methamphetamine use ([facility]); Smoking greater than 20 pack years; Foot swelling 10/27/2024 External Device Data STL ABSTRACTION Provider, Abstract 10/16/2024 Patient Outreach Counts Include [facility] [address] [phone] S[facility] Access 10/16/2024 Patient Outreach Counts Include [facility] [address] [facility] [address] [place] [phone] Seri [facility] Access 10/09/2024 Patient Outreach Counts Include [facility] [address] [phone] [facility] Access 10/09/2024 External Device Data STL ABSTRACTION Provider, Abstract 10/08/2024 External Device Data STL ABSTRACTION Provider, Abstract 10/08/2024 External Device Data STL ABSTRACTION Provider, Abstract 10/07/2024 External Device Data STL ABSTRACTION Provider, Abstract 10/07/2024 Telephone [facility] and Vascular - [address] [place] [address] Aiden Beauchamp MD 10/07 will need 3 month follow up when discharged. mm/at 10/07/2024 External Device Data STL ABSTRACTION Provider, Abstract 10/05/2024 Travel 10/02/2024 Patient Outreach Counts Include [facility] [address] [place] [address] Stacia Helton Referral 10/01/2024 6:58 PM CDT - 10/16/2024 1:45 PM CDT Hospital Encounter [facility] Neurology Medical [address] [place] [address] America Hernandez MD Stoll, Barry K, DO Raval, Krunal Dashrathlal, MD Organti, Nikhil, MD Kasireddy, Ravichandra, MD Peterson, Michael, MD Boyer, Joseph M, DO Boyer, Christopher Thomas, DO Acute arterial ischemic stroke, vertebrobasilar, cerebellar [...] drink = 0.6 oz pur e alcohol) Sex and Gender Information Value Date Recorded [...] Description 12/17/2024 10:30 AM CDT Office Visit [facility] Heart and Vascular - [address] [facility] [address] [place] [address] Health Maintenance Due Date Last Done Comments [...] Procedure Name Priority Date/Time Associated Diagnosis Comments CT CHEST F/U LDCT LUNG SCREEN WO CONTRAST Routine 11/21/2024 11:43 AM CDT TELEMETRY REPORT 10/22/2024 11:5 2 AM CDT [...] CDT from Last 3 Months Results * CT CHEST F/U LDCT LUNG SCREEN WO CONTRAST (11/21/2024 11:43 AM CDT) Anatomical Region Laterality Modality Chest Computed Tomogra phy us Xiomy Stern MASTIC FLOOR LAYER CT ORDERABLES Tennille l Result * TELEMETRY REPORT (10/22/2024 11:52 AM CDT) us Provider Scanning ECG ORDERABLES Final Result * (ABNORMAL) CBC WITH DIFFERENTIAL (10/16/2024 1:43 AM CDT) Only the most recent of11 resultswithin the time period is included. WBC 14.6(H) 4.0 - 9.8 K/uL 10/16/2024 2:21 AM CDT [facility] RBC 4.96 4.50 - 5.40 M/uL 10/16/2024 2:21 AM CDT [facility] HEMOGLOBIN 14.6 13.6 - 16.5 g/dL 10/16/2024 2:21 AM CDT [facility] HEMATOCRIT 44.5 40.0 - 48.0 % 10/16/2024 2:21 AM CDT [facility] MCV 89.7 82.0 - 99.0 fL 10/16/2024 2:21 AM CDT [facility] MCH 29.4 27.2 - 32.6 pg 10/16/2024 2:21 AM CDT [facility] MCHC 32.8 31.5 - 35.5 g/dL 10/16/2024 2:21 AM CDT [facility] RDW 12.4 11.5 - 14.5 % 10/16/2024 2:21 AM CDT [facility] RDW-STDEV 40.8 37.1 - 48.7 fL 10/16/2024 2:21 AM CDT [facility] PLATELETS 417(H) 140 - 350 K/uL 10/16/2024 2:21 AM CDT [facility] MPV 10.6 9.3 - 12.4 fL 10/16/2024 2:21 AM CDT [facility] NEUTROPHILS 57 % 10/16/2024 2:21 AM CDT [facility] LYMPHOCYTES 29 % 10/16/2024 2:21 AM CDT [facility] MONOCYTES 6 % 10/16/2024 2:21 AM CDT [facility] EOSINOPHILS 6 % 10/16/2024 2:21 AM CDT [facility] BASOPHILS 2 % 10/16/2024 2:21 AM CDT [facility] IMMATURE GRANULOCYTES 0 % 10/16/2024 2:21 AM CDT [facility] NEUTROPHIL ABSOLUTE 8.38(H) 1.90 - 7.00 K/uL 10/16/2024 2:21 AM CDT [facility] LYMPHOCYTE ABSOLUTE 4.21 0.70 - 4.50 K/uL 10/16/2024 2:21 AM CDT [facility] MONOCYTE ABSOLUTE 0.83 0.10 - 1.30 K/uL 10/16/2024 2:21 AM CDT [facility] EOSINOPHIL ABSOLUTE 0.93(H) 0.00 - 0.70 K/uL 10/16/2024 2:21 AM CDT [facility] BASOPHILS ABSOLUTE 0.23(H) 0.00 - 0.20 K/uL 10/16/2024 2:21 AM CDT [facility] IMMATURE GRANULOCYTES ABSOLUTE 0.05(H) 0.00 - 0.03 K/uL 10/16/2024 2:21 AM CDT [facility] Blood Venipuncture / Unknown 10/16/2024 1:43 AM CDT 10/16/2024 2:19 AM CDT us Tito Lin DO HEMATOLOGY ORDERABLE S Final Result [facility] CLIA# [id number] [place] [address] * (ABNORMAL) BASIC METABOLIC PANEL (10/16/2024 1:43 AM CDT) Only the most recent of20 resultswithin the time period is included. SODIUM 138 136 - 145 mmol/L 10/16/2024 2:23 AM CDT [facility] POTASSIUM 4.5 3.4 - 5.1 mmol/L 10/16/2024 2:23 AM CDT [facility] CHLORIDE 103 98 - 107 mmol/L 10/16/2024 2:23 AM CDT [facility] CO2 24 22 - 29 mmol/L 10/16/2024 2:23 AM CDT [facility] CALCIUM 9.2 8.6 - 10.4 mg/dL 10/16/2024 2:23 AM CDT [facility] BUN 19 6 - 20 mg/dL 10/16/2024 2:23 AM CDT [facility] CREATININE 1.10 0.67 - 1.17 mg/dL 10/16/2024 2:23 AM CDT [facility] GLUCOSE 107(H) 74 - 99 mg/dL 10/16/2024 2:23 AM T [facility] GFR >60 >=60 mL/min/1.7 3 sq meter 10/16/2024 2:23 AM T [facility] Comment:eGFR calculated with 2020 CKD-EPI equation. Vegetarian diet, extremely high or low muscle mass, and may affect results. Cystatin C with Glomerular Filtration Rate is a suitable alternative for these patients. ANION GAP 11 8 - 16 mmol/L 10/16/2024 2:23 AM T [facility] Blood Venipuncture / Unknown 10/16/2024 1:43 AM CDT 10/16/2024 1:55 AM CDT Tito Lin DO CHEMISTRY ORDERABLES Final Result [facility] CLIA# [id number] [place] [address] * CREATININE (10/15/2024 6:55 AM CDT) CREATININE 1.17 0.67 - 1.17 mg/dL 10/15/2024 8:17 AM CDT [facility] GFR >60 >=60 mL/min/1.7 3 sq meter 10/15/2024 8:17 AM CDT [facility] Comment:eGFR calculated with 2020 CKD-EPI equation. Vegetarian diet, extremely high or low muscle mass, and may affect results. Cystatin C with Glomerular Filtration Rate is a suitable alternative for these patients. Blood Venipuncture / Unknown 10/15/2024 6:55 AM CDT 10/15/2024 7:47 AM CDT us Gary Lin DO CHEMISTRY ORDERABLES Final Res ult [facility] CLIA# [id number] [place] [address] * CT ANKLE WO CONTRAST LEFT (10/14/2024 [...] for further details and recommendations. DICTATION LOCATION: [address] Procedure Note Landry Ferguson MD - 10/14/2024 [...] further details and recommendations. DICTATION LOCATION: Location [address] [place] [address] us Gary Lin DO DIAGNOSTIC IMAGING ORDERABLES Final Result * BLOOD CULTURE (10/11/2024 5:39 AM CDT) Only the most recent of2 resultswithin the time period is included. BLOOD CULTURE No growth 10/16/2024 11:52 AM CDT [facility] Blood (Peripheral) Venipuncture / Unknown 10/11/2024 5:39 AM CDT 10/11/2024 6:01 AM CDT Gary Lin DO MICROBIOLOGY - GENERAL ORDERAB LES Final Result [facility] Vedantu [facility] CLIA# [id number] [address] [place] [address] * XR CHEST PA OR AP 1 VW (10/10/2024 10:34 AM CDT) Only the most recent of2 resultswithin the time period is included. Anatomical Region Laterality Modality Chest Computed Radiogr aphy 10/10/2024 10:3 4 AM CDT Impressions 10/10/2024 10:38 AM CDT IMPRESSION: 1. No acute cardiopulmonary process. DICTATION LOCATION: [address] Narrative 10/10/2024 10:38 AM CDT EXAMINATION: Portable chest single view. HISTORY: Congestion. FINDINGS: Single portable view of the chest is compared to prior 10/02/2024. There is no focal consolidation, pneumothorax, pleural effusion, or edema. The cardiomediastinal contours are normal. Procedure Note Melissa Prasad MD - 10/10/2024 EXAMINATION: Portable chest single view. HISTORY: Congestion. FINDINGS: Single portable view of the chest is compared to prior 10/02/2024. There is no focal consolidation, pneumothorax, pleural effusion, or edema. The cardiomediastinal contours are normal. IMPRESSION: 1. No acute cardiopulmonary process. DICTATION LOCATION: [address] Gary Lin DO DIAGNOSTIC IMAGING ORDERABLES Final Result * (ABNORMAL) POC GLUCOSE (10/08/2024 7:25 AM CDT) Only the most recent of37 resultswithin the time period is included. GLUCOSE POC 126(H) 74 - 99 mg/dL 10/08/2024 7:25 AM CDT [facility] POINT [facility] SPECIMEN SOURCE, GLUCOSE POC Whole Blood 10/08/2024 7:25 AM CDT [facility] COMMENT, GLU POC Notified RN/MD 10/08/2024 7:25 AM CDT [facility] Blood, whole 10/08/2024 7:25 AM CDT 10/08/2024 7:32 AM CDT Gary Lin DO POINT OF CARE TESTING Final Re sult Performing Organization Address [facility]/ZIP Co de Phone Number [facility] POINT [facility]ARE CLIA # [id number] [place] [address] * PERIPHERAL BLOOD SMEAR PATHOLOGY INTERP (10/08/2024 2:46 AM CDT) PERIPHERAL BLOOD SMEAR INTERP See Pathology Report to Follow 10/08/2024 2:05 PM CDT [facility] Blood Venipuncture / Unknown 10/08/2024 2:46 AM CDT 10/08/2024 3:10 AM CDT Gary Lin DO HEMATOLOGY ORDERABLES Final Re sult Performing Organization Address City/[facility]/ZIP Co de Phone Number [facility] CLIA# [id number] [place] [address] * PATHOLOGY (10/08/2024 2:46 AM CDT) CASE REPORT Surgical Pathology Report Case: [id number] Authorizing Provider: Gary Lin DO Collected: 10/08/2024 02:46 AM Ordering Location: [facility] Received: 10/08/2024 02:43 PM Neurology Medical Pathologist: Stacia Pierce DO Specimen: Peripheral Blood Smear 10/08/2024 2:57 PM CDT [facility] FINAL DIAGNOSIS Peripheral smear review - Leukocytosis 10/08/2024 2:57 PM CDT [facility] at 1457 CDT MICROSCOPIC DESCRIPTION Reviewed are a patient labeled peripheral smear and CBC from 10/08/2024. There is a neutrophilic leukocytosis. Eosinophils appear slightly increased and there is a rare immature granulocyte. No blasts are seen. Red cells are normocytic and uniform. Platelets appear adequate. 10/08/2024 2:57 PM CDT [facility] CLINICAL INFORMATION No Dx found. 10/08/2024 2:57 PM CDT [facility] COMMENT Immunohistochemical stains were performed, if any, and interpreted at [facility] ([facility]) Laboratory with appropriately staining controls. This test was developed and its performance characteristics determined by [facility] Lab. It has not been cleared or [...] and other antigens. 10/08/2024 2:57 PM CDT [facility] Tissue (Peripheral Blood Smear) 10/08/2024 2:46 AM CDT 10/08/2024 2:43 PM CDT Gary Lin DO PATHOLOGY/CYTOLOGY ORDERABLES Final Result [facility] CLIA# [id number] [address] [place] [address] * (ABNORMAL) COMPREHENSIVE METABOLIC PANEL (10/08/2024 2:46 AM CDT) Only the most recent of2 resultswithin the time period is included. SODIUM 143 136 - 145 mmol/L 10/08/2024 3:42 AM [facility] POTASSIUM 4.2 3.4 - 5.1 mmol/L 10/08/2024 3:42 AM [facility] CHLORIDE 105 98 - 107 mmol/L 10/08/2024 3:42 AM [facility] CO2 24 22 - 29 mmol/L 10/08/2024 3:42 AM [facility] CALCIUM 9.7 8.6 - 10.4 mg/dL 10/08/2024 3:42 AM [facility] BUN 25(H) 6 - 20 mg/dL 10/08/2024 3:42 AM [facility] CREATININE 0.98 0.67 - 1.17 mg/dL 10/08/2024 3:42 AM [facility] GLUCOSE 129(H) 74 - 99 mg/dL 10/08/2024 3:42 AM [facility] TOTAL PROTEIN 7.4 6.3 - 8.7 g/dL 10/08/2024 3:42 AM [facility] ALBUMIN 3.7 3.5 - 5.2 g/dL 10/08/2024 3:42 AM [facility] BILIRUBIN TOTAL 0.3 0.0 - 1.2 mg/dL 10/08/2024 3:42 AM [facility] ALKALINE PHOSPHATASE 148 40 - 150 U/L 10/08/2024 3:42 AM [facility] AST 33 0 - 41 U/L 10/08/2024 3:42 AM [facility] ALT 53(H) 0 - 41 U/L 10/08/2024 3:42 AM [facility] GFR >60 >=60 mL/min/1.7 3 sq meter 10/08/2024 3:42 AM [facility] Comment:eGFR calculated with 2020 CKD-EPI equation. Vegetarian diet, extremely high or low muscle mass, and may affect results. Cystatin C with Glomerular Filtration Rate is a suitable alternative for these patients. ANION GAP 14 8 - 16 mmol/L 10/08/2024 3:42 AM CDT [facility] Blood Venipuncture / Unknown 10/08/2024 2:46 AM CDT 10/08/2024 3:10 AM CDT Gary Lin DO CHEMISTRY ORDERABLES Final Res ult Performing Organization Address City/[facility]/ZIP Co de Phone Number [facility] CLIA# [id number] [place] [address] * SAADIA AURIS SURVEILLANCE SCREEN (10/07/2024 8:56 AM CDT) Only the most recent of2 resultswithin the time period is included. CULTURE No Saadia auris isolated 10/10/2024 8:56 AM CDT [facility] Surveillance (Axilla/Groin) Collection / Unknown 10/07/2024 8:56 AM CDT 10/07/2024 9:01 AM CDT Jessa Spaulding MD MICROBIOLOGY - GENERAL ORDERABLES Final Result Performing Organization Address [facility]/RUST Co de Phone Number [facility] CLIA# [id number] [address] [place] [address] * XR CALCANEUS 2+ VW LEFT (10/06/2024 7:48 PM CDT) Anatomical Region Laterality Modality Ankle / Foot Computed Radiogr aphy 10/06/2024 7:48 PM CDT Impressions 10/06/2024 7:57 PM CDT IMPRESSION: Calcaneal spurs otherwise negative DICTATION LOCATION: Location - [facility] Narrative 10/06/2024 7:57 PM CDT LEFT CALCANEUS [...] Calcaneal spurs otherwise negative DICTATION LOCATION: Location [address] [place] [address] Landry Rollins MD DIAGNOSTIC IMAGING ORDERABLE S Final Result * XR CALCANEUS 2+ VW RIGHT (10/06/2024 7:48 PM CDT) Anatomical Region Laterality Modality Ankle / Foot Computed Radiogr aphy 10/06/2024 7:48 PM CDT Impressions 10/06/2024 7:57 PM CDT IMPRESSION: No acute calcaneal pathology Inferior calcaneal spur DICTATION LOCATION: Location [address] [place] [address] Narrative 10/06/2024 7:57 PM CDT RIGHT CALCANEUS [...] pathology Inferior calcaneal spur DICTATION LOCATION: Location [address] [place] [address] Martin Juarez MD DIAGNOSTIC IMAGING ORDERABLE S Final Result * MANUAL DIFFERENTIAL (10/06/2024 4:43 AM CDT) PLATELET EST. Adequate 10/06/2024 6:17 AM CDT [facility] RBC MORPHOLOGY Normal 10/06/2024 6:17 AM CDT [facility] Blood Venipuncture / Unknown 10/06/2024 4:43 AM CDT 10/06/2024 5:09 AM CDT us Tyrone Mcallister NP HEMATOLOGY ORDERABLES COM Fin al Result Performing Organization Address City/[facility]/ZIP Co de Phone Number [facility] CLIA# [id number] [address] [place] [address] * (ABNORMAL) CALCIUM IONIZED (10/05/2024 4:50 AM CDT) PH, VENOUS 7.42 Ref Range Not Established 10/05/2024 6:11 AM CDT [facility] CALCIUM IONIZED 2.8(LL) 4.8 - 5.2 mg/dL 10/05/2024 6:11 AM CDT [facility] Comment:Verified by repeat a nalysis. Blood Venipuncture / Unknown 10/05/2024 4:50 AM CDT 10/05/2024 5:12 AM CDT us Arden Payton MD CHEMISTRY ORDERABLES Final Res ult Performing Organization Address City/[facility]/ZIP Co de Phone Number [facility] CLIA# [id number] [place] [address] * UNFRACTIONATED HEPARIN MONITORING (10/05/2024 3:46 AM CDT) Only the most recent of7 resultswithin the time period is included. ANTI-XA UNFRAC HEP 0.46 See Interpreta tion. IU/mL 10/05/2024 4:33 AM CDT [facility] Blood Venipuncture / Unknown 10/05/2024 3:46 AM CDT 10/05/2024 3:52 AM CDT Narrative [facility] - 10/05/2024 4:33 AM CDT Unfractionated Heparin Therapeutic Range: 0.30-0.70 IU/ml Refer to pharmacy adult heparin protocol for further recommendation. The reference range for this test is specific to the anticoagulant and is not appropriate for monitoring patients on a DOAC protocol. Ronnie Martinez HEMATOLOGY ORDERABLES Final Res ult Performing Organization Address [facility]UST Co de Phone Number [facility] CLIA# [id number] [place] [address] * PHOSPHORUS (10/05/2024 3:46 AM CDT) Only the most recent of2 resultswithin the time period is included. PHOSPHORUS 3.6 2.5 - 4.5 mg/dL 10/05/2024 5:01 AM CDT [facility] Blood Venipuncture / Unknown 10/05/2024 3:46 AM CDT 10/05/2024 3:52 AM CDT Ronnie K Michelle CHEMISTRY ORDERABLES Final Resu lt Performing Organization Address [facility] de Phone Number [facility] [id number] [address] [place] [address] * MAGNESIUM LEVEL (10/05/2024 3:46 AM CDT) Only the most recent of3 resultswithin the time period is included. MAGNESIUM 2.3 1.6 - 2.6 mg/dL 10/05/2024 5:01 AM CDT [facility] Blood Venipuncture / Unknown 10/05/2024 3:46 AM CDT 10/05/2024 3:52 AM CDT Ronnie K Michelle CHEMISTRY ORDERABLES Final Resu lt Performing Organization Address City/[facility]/ZIP Co de Phone Number [facility] [id number] [place] [address] * (ABNORMAL) OSMOLALITY (10/04/2024 4:27 PM CDT) Only the most recent of16 resultswithin the time period is included. OSMOLALITY 312(H) 289 - 305 mOsm/kg 10/04/2024 4:57 PM CDT [facility] Blood Venipuncture / Unknown 10/04/2024 4:27 PM CDT 10/04/2024 4:39 PM CDT Allan Soriano MD CHEMISTRY ORDERABLES Final R esult Performing Organization Address [facility]UST Co de Phone Number [facility] [id number] [place] [address] * CT HEAD WO CONTRAST (10/04/2024 10:57 AM CDT) Only the most recent of2 resultswithin the time period is included. Anatomical Region Laterality Modality Head Computed Tomogra phy 10/04/2024 10:5 2 AM CDT Impressions 10/04/2024 11:21 AM CDT IMPRESSION: 1. 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 2. No acute intracranial hemorrhage present. DICTATION LOCATION: Location 7 - [facility] Narrative 10/04/2024 11:21 AM CDT COMPUTED TOMOGRAPHY [...] acute intracranial hemorrhage present. DICTATION LOCATION: Location [address] [place] [address] ORDERABLES Tennille l Result * OSMOLALITY, URINE (10/03/2024 7:42 AM CDT) Only the most recent of2 resultswithin the time period is included. OSMOLALITY, URINE 758 50 - 1,200 mOsm/kg 10/03/2024 8:14 AM CDT [facility] Urine URINE SPECIMEN OBTAINED BY CLEAN CATCH PROCEDURE / Unknown Collection / Unknown 10/03/2024 7:42 AM CDT 10/03/2024 7:51 AM CDT Narrative [facility] - 10/03/2024 8:14 AM CDT Reference range: 50-1200 mOsm/kg H2O, depending on fluid intake. Merrick Elizabeth DO URINE ORDERABLES Final Res ult [facility] CLIA# [id number] [address] [place] [address] * EXTRA TUBE (GREEN) (10/03/2024 5:11 AM CDT) Blood Venipuncture / Unknown 10/03/2024 5:11 AM CDT 10/03/2024 5:11 AM CDT Suresh Morgan MD CHEMISTRY ORDERABLES Final Result [facility]# [id number] [place] [address] * ECHOCARDIOGRAM W/ CONTRAST AGENT (10/02/2024 8:32 AM CDT) EJECTION FRACTION 57 INTERFACE SYSTEM 10/02/2024 7:57 AM CDT Narrative INTERFACE SYSTEM - 10/02/2024 9:41 AM CDT Transthoracic Echocardiogram Patient: Yahir Meeks Study ID: [id number] Gender: M : 1965 Age: 58 Race: CAU Height 188cm Study Date: 10/02/2024 Weight: 111.3kg Access. #: [id number] BP: 146 / 82 *Referring Physician:* Tyrone Mcallister *Ordering Physician:* Tyrone Mcallister *Ticket Broker:* Hao Barcenas RDCS,[facility] precision layout worker: Nurse: Indications: Cerebrovascular accident. STUDY CONCLUSIONS: SUMMARY: [...] at baseline or with provocation, shows no afyan-li-tosi atrial level shunt. - Tricuspid valve: Trivial [...] at baseline or with provocation, shows no kbdyo-ey-ecql atrial level shunt. RIGHT VENTRICLE: The cavity [...] values inside specified reference range. Procedure data: [facility] No prior study was available [...] Bedside. Prepared and Electronically Authenticated Jonathan Mckeon [id number] Procedure Note Jonathan Mckeon MD - 10/02/2024 Transthoracic Echocardiogram Patient: Yahir Meeks Study ID: [id number] Gender: M : 1965 Age: 58 Race: CORY Height 188cm Study Date: 10/02/2024 Weight: 111.3kg Access. #: [id number] BP: 146 / 82 *Referring Physician:* Tyrone Mcallister *Ordering Physician:* Tyrone Mcallister *Ticket Broker:Liam Barcenas [facility] precision layout worker: Nurse: Indications: Cerebrovascular accident. STUDY CONCLUSIONS: SUMMARY: [...] at baseline or with provocation, shows no xcwbe-rz-blxx atrial level shunt. - Tricuspid valve: Trivial [...] at baseline or with provocation, shows no jeskf-jg-tmhk atrial level shunt. RIGHT VENTRICLE: The cavity [...] values inside specified reference range. Procedure data: [facility] No prior study was available [...] Location: Bedside. Preparedand Electronically Authenticated Jonathan Mckeon [id number] Tyrone Mcallister NP US ORDERABLES Final Result INTERFACE SYSTEM Refer to clinic/hospital department * PROCALCITONIN (10/02/2024 8:28 AM CDT) PROCALCITONIN 0.11 <2.01 ng/mL 10/02/2024 1:53 PM CDT [facility] Blood Venipuncture / Unknown 10/02/2024 8:28 AM CDT 10/02/2024 8:44 AM CDT Narrative [facility] - 10/02/2024 1:53 PM CDT The [...] 2-4 hours and peaks within 6-24 hours. us Suresh Morgan MD CHEMISTRY ORDERABLES Final Result Performing Organization Address City/[facility]/ZIP Co de Phone Number [facility] CLIA# [id number] [place] [address] * (ABNORMAL) C-REACTIVE PROTEIN (10/02/2024 8:28 AM CDT) CRP 23.4(H) <5.0 mg/L 10/02/2024 1:41 PM CDT [facility] Blood Venipuncture / Unknown 10/02/2024 8:28 AM CDT 10/02/2024 8:44 AM CDT Suresh Morgan MD CHEMISTRY ORDERABLES Final Result Performing Organization Address [facility]/[place] Co de Phone Number [facility] [id number] [place] [address] * (ABNORMAL) HEMOGLOBIN A1C (10/02/2024 3:50 AM CDT) HEMOGLOBIN A1C 6.4(H) <=5.6 % 10/02/2024 4:40 AM CDT [facility] EST. AVG GLUCOSE, A1C 137 mg/dL 10/02/2024 4:40 AM CDT [facility] Blood Venipuncture / Unknown 10/02/2024 3:50 AM CDT 10/02/2024 4:21 AM CDT Narrative [facility] - 10/02/2024 4:40 AM CDT HGB A1C INTERPRETATION NORMAL: <5.7% PRE-DIABETES: 5.7 - 6.4% DIABETES: 6.5% OR GREATER Tyrone Mcallister NP CHEMISTRY ORDERABLES Final Re sult Performing Organization Address City/[facility]/ZIP Co de Phone Number [facility] CLIA# [id number] [place] [address] * (ABNORMAL) LIPID PANEL (10/02/2024 3:50 AM CDT) CHOLESTEROL 178 <200 mg/dL 10/02/2024 4:52 AM CDT [facility] TRIGLYCERIDE 150(H) <150 mg/dL 10/02/2024 4:52 AM T [facility] HDL 32(L) 40 - 59 mg/dL 10/02/2024 4:52 AM CDT [facility] LDL CALCULATED 116(H) <100 mg/dL 10/02/2024 4:52 AM T [facility] NON-HDL CHOLESTEROL 146(H) <130 mg/dL 10/02/2024 4:52 AM T [facility] Blood Venipuncture / Unknown 10/02/2024 3:50 AM CDT 10/02/2024 4:21 AM CDT [facility] - 10/02/2024 4:52 AM CDT TOTAL CHOLESTEROL [...] Mcallister NP CHEMISTRY ORDERABLES Final Re sult [facility] CLIA# [id number] [place] [address] * (ABNORMAL) TROPONIN 6 HR, 5TH GEN (10/02/2024 1:21 AM CDT) TROPONIN T, 6 HR 5TH GEN 17(H) <=15 ng/L 10/02/2024 2:01 AM CDT [facility] DELTA 6HR TROPONIN T -2 See Interp. 10/02/2024 2:01 AM CDT [facility] Blood Venipuncture / Unknown 10/02/2024 1:21 AM CDT 10/02/2024 1:32 AM CDT Narrative [facility] - 10/02/2024 2:01 AM CDT Troponin elevated. Delta indeterminate. us America Hernandez MD CHEMISTRY ORDERABLES Final Resul t [facility] CLIA# [id number] [place] [address] * EKG 12-LEAD (10/01/2024 11:38 PM CDT) Only the most recent of2 resultswithin the time period is included. 10/01/2024 11:3 8 PM CDT Narrative INTERFACE SYSTEM - 10/02/2024 7:33 AM CDT [facility] [id number] [place] [address] Test Date: 2024-10-01 Pat Name: YAHIR MEEKS Department: 98 Room: [facility] Gender: Male Lighting Director: [id number] : 1965 Requested By: AMERICA HERNANDEZ Order Number: [id number] Alberto MD: Tito Teran Measurements Intervals [place] Rate: 88 P: 69 NM: 146 QRS: 20 QRSD: 80 T: 37 QT: 378 QTc: 457 Interpretive Statements Normal sinus rhythm Possible Left atrial enlargement Possible Anterior infarct, age undetermined Abnormal ECG Compared to ECG 10/01/2024 19:05:40 ST (T wave) deviation no longer present Electronically Signed On 10-02-2024 7:33:09 CDT by Tito Teran Procedure Note Tito Teran MD - 10/02/2024 [facility] [address] [place] [address] Test Date: 2024-10-01 Pat Name: YAHIR MEEKS Department: 98 Room: 2706 Gender: Male Lighting Director: [id number] : 1965 Requested By: AMERICA HERNANDEZ Order Number: [id number] Reading MD: Tito Teran Measurements Intervals [place] Rate: 88 P: 69 NM: 146 QRS: 20 QRSD: 80 T: 37 QT: 378 QTc: 457 Interpretive Statements Normal sinus rhythm Possible Left atrial enlargement Possible Anterior infarct, age undetermined Abnormal ECG Compared to ECG 10/01/2024 19:05:40 ST (T wave) deviation no longer present Electronically Signed On 10-02-2024 7:33:09 CDT by Tito Teran us America Hernandez MD ECG ORDERABLES Final Result Performing Organization Address City/State/[place] Co de Phone Number INTERFACE SYSTEM Refer to clinic/hospital department * US VENOUS DOPPLER LEG BILATERAL (10/01/2024 10:53 PM CDT) Anatomical Region Laterality Modality Lower Extremity Ultrasound 10/01/2024 10:5 3 PM CDT Impressions 10/01/2024 10:58 PM CDT IMPRESSION: No evidence of deep venous thrombosis. DICTATION LOCATION: Location - [facility] Narrative 10/01/2024 10:58 PM CDT DUPLEX EXAMINATION [...] of deep venous thrombosis. DICTATION LOCATION: Location [address] [place] [address] Andres Rodriguez MD US ORDERABLES Final Result * EXTRA TUBE (URINE BLANCO) (10/01/2024 10:18 PM CDT) Urine URINE SPECIMEN OBTAINED BY CLEAN CATCH PROCEDURE / Unknown Collection / Unknown 10/01/2024 10:18 PM CDT 10/01/2024 10:29 PM CDT America Hernandez MD URINE ORDERABLES Final Result [facility] [id number] [address] [place] [address] * (ABNORMAL) DRUG SCREEN, URINE (10/01/2024 10:18 PM CDT) AMPHETAMINE QUAL, URINE Presumptive Positive(A) Negative 10/01/2024 10:54 PM CDT [facility] BARBITURATE QUAL, URINE Negative Negative 10/01/2024 10:54 PM CDT [facility] BENZODIAZEPINE QUAL, URINE Negative Negative 10/01/2024 10:54 PM CDT [facility] COCAINE QUAL URINE Negative Negative 10/01/2024 10:54 PM CDT [facility] OPIATE QUAL, URINE Negative Negative 10/01/2024 10:54 PM CDT [facility] CANNABINOIDS QUAL, URINE Presumptive Positive(A) Negative 10/01/2024 10:54 PM CDT [facility] PCP QUAL, URINE Negative Negative 10:54 PM CDT [facility] OXYCODONE QUAL, URINE Negative Negative 10/01/2024 10:54 PM CDT [facility] METHADONE QUAL, URINE Negative Negative 10/01/2024 10:54 PM CDT [facility] FENTANYL QUAL, URINE Negative Negative 10/01/2024 10:54 PM CDT [facility] CREATININE, URINE 184.0 40.0 - 278.0 mg/dL 10/01/2024 10:54 PM CDT [facility] Comment:Reference Range vari es with fluid intake and diet. Urine URINE SPECIMEN OBTAINED BY CLEAN CATCH PROCEDURE / Unknown Collection / Unknown 10/01/2024 10:18 PM CDT 10/01/2024 10:29 PM CDT Narrative [facility] - 10/01/2024 10:54 PM CDT This test [...] Negative 25 ng/mL Fentanyl Negative 5 ng/mL us America Hernandez MD URINE ORDERABLES Final Result [facility] CLIA# [id number] [address] * (ABNORMAL) URINALYSIS WITH REFLEX MICROSCOPIC (10/01/2024 10:18 PM CDT) COLOR UA Yellow Pale to Dark Yellow 10/01/2024 11:56 PM CDT [facility] CLARITY UA Slightly Cloudy(A) Clear 10/01/2024 11:56 PM CDT [facility] SPECIFIC GRAVITY UA >1.035(H) 1.003 - 1.035 10/01/2024 11:56 PM CDT [facility] PH UA 5.0 5.0 - 8.0 10/01/2024 11:56 PM CDT [facility] LEUKOCYTE ESTERASE UA Negative Negative 10/01/2024 11:56 PM CDT [facility] NITRITE UA Negative Negative 10/01/2024 11:56 PM CDT [facility] PROTEIN UA 1+(A) Negative 10/01/2024 11:56 PM CDT [facility] GLUCOSE UA Negative Negative 10/01/2024 11:56 PM CDT [facility] KETONES UA Negative Negative 10/01/2024 11:56 PM CDT [facility] UROBILINOGEN UA Normal <2.0 mg/dL 11:56 PM CDT [facility] BILIRUBIN UA Negative Negative 10/01/2024 11:56 PM CDT [facility] BLOOD UA Negative Negative 10/01/2024 11:56 PM CDT [facility] WBC UA 11-25(A) 0 - 2 /hpf 10/01/2024 11:56 PM CDT [facility] RBC UA 51-100(A) 0 - 2 /hpf 10/01/2024 11:56 PM CDT [facility] BACTERIA UA 1+(A) Negative /hpf 10/01/2024 11:56 PM CDT [facility] EPITHELIAL CELLS, URINE 0-5 0 - 5 /hpf 10/01/2024 11:56 PM CDT [facility] HYALINE CAST None Seen None Seen, 0-2 /lpf 10/01/2024 11:56 PM T [facility] Urine URINE SPECIMEN OBTAINED BY CLEAN CATCH PROCEDURE / Unknown Collection / Unknown 10/01/2024 10:18 PM CDT 10/01/2024 10:29 PM CDT America Hernandez MD URINE ORDERABLES Final Result [facility] [id number] [place] [address] * (ABNORMAL) TROPONIN 2 HR, 5TH GEN (10/01/2024 10:13 PM CDT) TROPONIN T, 2 HR 5TH GEN 17(H) <=15 ng/L 10/01/2024 10:47 PM CDT [facility] DELTA 2HR TROPONIN T -2 See Interp. 10/01/2024 10:47 PM CDT [facility] Blood Venipuncture / Unknown 10/01/2024 10:13 PM CDT 10/01/2024 10:20 PM CDT Narrative [facility] - 10/01/2024 10:47 PM CDT Troponin elevated. Delta not changing. Delay in collection of timed specimen beyond recommended collection interval. Results must be interpreted in clinical context. America Hernandez MD CHEMISTRY ORDERABLES Final Resul t Performing Organization Address City/[facility]/ZIP Co de Phone Number [facility]# [id number] [place] [address] * TYPE AND SCREEN (10/01/2024 8:38 PM CDT) ABO GROUP AB 10/01/2024 10:05 PM CDT [facility] RH (D) TYPE Positive 10/01/2024 10:05 PM CDT [facility] ANTIBODY SCREEN Negative 10/01/2024 10:05 PM CDT [facility] Blood Venipuncture / Unknown 10/01/2024 8:38 PM CDT 10/01/2024 8:47 PM CDT us America Hernandez MD BLOOD BANK ORDERABLES Edited Res ult - Final [facility] MONI# [id number] [place] [address] * MRI BRAIN HYPERACUTE FOR STROKE (10/01/2024 [...] RN on 10/01/2024 8:22 PM. DICTATION LOCATION: Location 7 - [facility] Narrative 10/01/2024 11:26 PM CDT MRI BRAIN [...] RN on 10/01/2024 8:22 PM. DICTATION LOCATION: Location [address] [place] [address] Andres Rodriguez MD MR ORDERABLES Final Result * CT CEREBRAL PERFUSION STDY W CONT (10/01/2024 7:53 PM CDT) Anatomical Region Laterality Modality Head Computed Tomogra phy 10/01/2024 7:35 PM CDT Impressions 10/01/2024 9:39 PM CDT IMPRESSION: Questionable ischemia in the right cerebellum and right occipital lobe. DICTATION LOCATION: [address] Narrative 10/01/2024 9:[address] [...] cerebellum and right occipital lobe. DICTATION LOCATION: [address] Andres Rodriguez MD CT ORDERABLES Final Result * CTA HEAD AND NECK W AND/OR WO CONTRAST (10/01/2024 7:35 PM CDT) Anatomical Region Laterality Modality Head Computed Tomogra phy 10/01/2024 7:28 PM CDT Impressions 10/01/2024 9:48 PM CDT IMPRESSION: 1.No intracranial large vessel occlusion or cervical ICA stenosis 2. 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 DICTATION LOCATION: [address] Narrative 10/01/2024 9:[address] ANGIOGRAM OF [...] arch and descending thoracic aorta. DICTATION LOCATION: [address] Andres Rodriguez MD CT ORDERABLES Final Result * CT HEAD WO CONTRAST STROKE PROTOCOL (10/01/2024 7:25 PM CDT) Anatomical Region Laterality Modality Head Computed Tomogra phy 10/01/2024 7:25 PM CDT Impressions 10/01/2024 7:29 PM CDT IMPRESSION: No acute intracranial abnormality. Critical findings were discussed with Stroke RN at 10/01/2024 7:26 PM. DICTATION LOCATION: [address] Narrative 10/01/2024 7:29 PM CDT COMPUTED [...] normal. No fractures are identified. Procedure Note GaleanaPhilip MD - 10/01/2024 COMPUTED TOMOGRAPHY SCAN OF [...] RN at 10/01/2024 7:26 PM. DICTATION LOCATION: [address] us America Hernandez MD CT ORDERABLES Final Result * (ABNORMAL) TROPONIN BASELINE, 5TH GEN (10/01/2024 7:17 PM CDT) TROPONIN T, BASELINE 5TH GEN 19(H) <=15 ng/L 10/01/2024 7:57 PM CDT [facility] Blood Venipuncture / Unknown 10/01/2024 7:17 PM CDT 10/01/2024 7:26 PM CDT Narrative [facility] - 10/01/2024 7:57 PM CDT Troponin elevated. America Hernandez MD CHEMISTRY ORDERABLES Final Resul t Performing Organization Address [facility]/[place] Co de Phone Number [facility]# [id number] [place] [address] * PROTIME-INR (10/01/2024 7:17 PM CDT) PROTIME 12.7 11.5 - 14.7 Seconds 10/01/2024 7:47 PM CDT [facility] INR 0.9 0.9 - 1.1 10/01/2024 7:47 PM CDT [facility] Blood Venipuncture / Unknown 10/01/2024 7:17 PM CDT 10/01/2024 7:22 PM CDT America Hernandez MD HEMATOLOGY ORDERABLES Final Resu lt Performing Organization Address [facility]/ZIP Co de Phone Number [facility]# [id number] [place] [address] * Critical Care (10/01/2024 6:56 PM CDT) [...] or life-threatening deterioration of the following conditions: COMPLIANCE ASSOCIATE failure or compromise Critical care was time [...] Final Result from Last 3 Months Insurance [employer] Medicaid MEDICAID [place] RX BANSAL PLANS (INTERNAL) [facility] [employer] Commercial RX JONO FUND (INTERNAL) [facility] [employer] Medicaid [employer] Commercial Advance Directives For more information, please contact: [phone] * Full Code (Latest Code Status on File) Date Activated Date Inactivated Comments 10/01/2024 9:50 PM 10/16/2024 3:50 PM Care Teams Refinisher Relationship Specialty Start Date End Date Analy Willis MD [address] [place] [address] PCP - General Family Practice 11/12/24
--- OUTSIDE RECORDS SUMMARY | 2024-12-03 13:12 | XMS_ITS | Encounter Summary ---
Author Organization [facility] Address [address] [place] [address] Care Team Providers Care Dental Coordinator Name Role Phone Unavailable Primary Care Provider Unavailabl e Encounter Details Date Type Department Care Team (Late st Contact Info) Description 10/25/2018 Abstract [facility] CONVERSION [address] [place] [address] , Generic Conversion, Social History Tobacco Use [...]
== END 2024-12-03 13:10 | disposition home or self-care (01) ==
LOC: ANHAUDIO 13:10
PROVIDERS: Visit Provider Otolaryngology
DX: H90.41 Sensorineural hearing loss, unilateral, right ear, with unrestricted hearing on the contralateral side (principal); H90.72 Mixed conductive and sensorineural hearing loss, unilateral, left ear, with unrestricted hearing on the contralateral side; H74.8X3 Other specified disorders of middle ear and mastoid, bilateral; Z86.73 Personal history of transient ischemic attack (TIA), and cerebral infarction without residual deficits
CPT/HCPCS: 92557; 92567

== ENCOUNTER 2025-01-26 15:30 | Outpatient (RCR) | payer BC, MEDICAID, SELFPAY ==
--- NOTE | 2024-11-18 13:47 | OTOPEVAL1 ---
Assessment and note entered by Justina Pride, OT Evaluation Information Assessment Status Evaluation Diagnosis R hemipeligia ICD-10 Condition Codes (OT) Generalized muscle weakness M62.81 Other ICD-10 Condition Codes ( R27.8 OT) Onset 10/01/24 Subjective Information Pt. reports he had CVA on 10/01/24, hospitalized for 15 days and then discharged home. 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 Pt. lives with roommate, has sister and adult children locally. Pt. is typically R handed, using his L hand more frequently. Pt. reports he is independent in ADLs, It's hard, but I have to do it. Pt. states he is now requiring increased time to complete tasks, reporting specific difficulty with standing activities. Pt. reports difficulty with dynamic standing balance tasks and coordination of bilateral UE, including0 laundry, cleaning, yard work, weed whacking, mowing the lawn. Reports R UE just feels heavy. Reported Pain Level Pain Score 4: Self Report Additional Pain Score Comments reports onset at time of CVA with swelling, sister present and reporting she is calling to get scan Assessment OT Clinical Summary Pt. 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 Pt. is R hand dominant, although quite strong at baseline, demonstrates decreased strength, endurance, coordination and dexterity, compared to baseline and L UE, ROM WNL bilaterally at all joints. Pt. will benefit from skilled OT services including therapeutic exercises and activities, neuroeducation, and training for functional tasks required for return to greatest level of capacity in R UE and bilateral coordination. Plan of Care Interventions Therapeutic Exercise,Neuro Re-education, Therapeutic Activities,Sensory Integrative Techniques,Self-Care/Home Management OT Services Indicated Yes Treatment Frequency and 2x/ week for 8 visits Duration These treatments will address the objective and functional deficits as defined above. The patient will be advanced safely and appropriately in order for the patient to progress towards his/her prior level of function. Additional exercises will be introduced and as well as a comprehensive home exercise program upon discharge, if needed, ?to ensure carryover of functional gains achieved in the clinic. This treatment plan has been reviewed and agreement upon by the patient.
--- NOTE | 2024-11-18 13:47 | OPREHPOC ---
Outpatient Therapy Plan of Care This is a Multidisciplinary Plan of Care that may contain components documented by all disciplines (PT, OT, and ST.) OT Problem 1 OT Problem #1 Knowledge Deficit OT Goal 1 Goal / Goal Update Pt. will demonstrate independence and compliance in frequency in HEP Target Visit 8 OT Problem 2 OT Problem #2 Impaired Coordination OT Goal 1 Goal / Goal Update Pt. will demonstrate increased coordination and dexterity in R hand and in bilateral activities , as demonstrated by 9 hole peg test completion < 30 seconds Target Visit 16 OT Problem 3 OT Problem #3 Impaired Endurance OT Goal 1 Goal / Goal Update Pt. will demonstrate increased endurance in R UE for prolonged use in functional activity, as measured by 45 minutes of therapeutic exercises and activity without need for rest break Target Visit 16 OT Problem 4 OT Problem #4 Impaired Balance OT Goal 1 Goal / Goal Update Pt. will demonstrate increased capacity for functional transfers and dynamic standing balance in functional activity, as demonstrated by report of increased participation and completion of work and IADLs independently
--- NOTE | 2024-11-25 16:24 | OPREHPOC ---
Outpatient Therapy Plan of Care This is a Multidisciplinary Plan of Care that may contain components documented by all disciplines (PT, OT, and ST.) OT Problem 1 OT Problem #1 Knowledge Deficit OT Goal 1 Goal / Goal Update Pt. will demonstrate independence and compliance in frequency in HEP Target Visit 8 OT Problem 2 OT Problem #2 Impaired Coordination OT Goal 1 Goal / Goal Update Pt. will demonstrate increased coordination and dexterity in R hand and in bilateral activities , as demonstrated by 9 hole peg test completion < 30 seconds Target Visit 16 OT Problem 3 OT Problem #3 Impaired Endurance OT Goal 1 Goal / Goal Update Pt. will demonstrate increased endurance in R UE for prolonged use in functional activity, as measured by 45 minutes of therapeutic exercises and activity without need for rest break Target Visit 16 OT Problem 4 OT Problem #4 Impaired Balance OT Goal 1 Goal / Goal Update Pt. will demonstrate increased capacity for functional transfers and dynamic standing balance in functional activity, as demonstrated by report of increased participation and completion of work and IADLs independently ST Problem 1 ST Problem #[address] Goal 1 Goal / Goal Update The patient will participate in home programming to improve carry over/generalization of skills to the home environment. Target Visit 6 ST Goal 1 Goal / Goal Update Dysarthria: 1. The patient will produce phrases/sentences with 85% intelligibility using compensatory techniques and minimal cues 2. The patient will produce 3-4 conversational speech exchanges with 85% intelligibility using compensatory techniques and minimal cues 3. The patient will complete oral motor exercises 85% minimal cues Target Visit 10 ST Goal 1 Goal / Goal Update Dysphagia: 1. The patient will complete dysphagia exercises 85% minimal cues 2. The patient will demonstrate use of compensatory dysphagia strategies with reduced clinical signs of aspiration 85% minimal cues. Target Visit 10
--- NOTE | 2024-11-25 16:25 | STOPEVAL1 ---
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 The patient states that he still coughs at times when eating and drinking and that as the day progresses his speech can become more difficult for others to understand. Reported Pain Level Pain Score 0: Self Report Pain Score 0: Self Report Assessment ST Clinical Summary The patient is a 59 year old male s/p CVA October 01, 2024 with dysarthria and dysphagia post CVA. The patient states that he still coughs at times when eating and drinking and that as the day progresses his speech can become more difficult for others to understand. The patient is producing intelligible speech in simple conversational exchanges 65-70% of the time . Phrase production 85%, Sentence Production 80%, Conversation 75%. When completing trials with PROPERTY ADMINISTRATOR implementing a slow rate, over articulation, and one word at a time speech intelligibility improved to 85% at sentence level and 80-85% at simple conversational exchanges. He has noted adequate range of movement for lingual protrusion, lateralization, and elevation but rate is slow and at times irregular. The patient is able to regulate respiration and improved breath support when pacing speech. The patient was noted to be audibly wheezing after trials of puree/applesauce and drinks of water. (PROPERTY ADMINISTRATOR has requested MBS results from [facility] to better assess swallow function history) Question if dysphagia is impacting respiration. Will initiate some dysphagia compensatory strategies and adjust if indicated following receiving most recent MBS results. The patient demonstrates timely oral preparation and transit across consistencies. However, when presented cup trials of thin liquids and tsp amounts of puree/applesauce although swallow initiation appears timely the patient is observed to have a wet vocal quality, nasal drainage, and have an audibly wheezy breath sound. PROPERTY ADMINISTRATOR and patient discussed compensatory techniques and applied a chin tuck posture with trials of thin liquid and puree applesauce which the patient reported appeared to help with his swallow. With the chin tuck posture additional changes in vocal quality and breath sounds were not noted by the PROPERTY ADMINISTRATOR. Will request most recent MBS results to adjust treatment techniques and exercises as needed. Plan of Care Interventions Treatment of Speech,Treatment of Swallowing Dysfunction ST Services Indicated Yes Treatment Frequency and 1x weekly/ x 10 visits. Duration These treatments will address the objective and functional deficits as defined above. The patient will be advanced safely and appropriately in order for the patient to progress towards his/her prior level of function. Additional exercises will be introduced and as well as a comprehensive home exercise program upon discharge, if needed, ?to ensure carryover of functional gains achieved in the clinic. This treatment plan has been reviewed and agreement upon by the patient.
--- NOTE | 2024-11-30 16:30 | OPREHPOC ---
Outpatient Therapy Plan of Care This is a Multidisciplinary Plan of Care that may contain components documented by all disciplines (PT, OT, and ST.) PT Problem 1 PT Problem #1 Knowledge Deficit PT Goal 1 Goal / Goal Update [place] with HEP Target Visit 4 PT Goal 2 Goal / Goal Update Improve 2 minute walk test to 450 feet PT Problem 2 PT Problem #2 Impaired Gait PT Goal 1 Goal / Goal Update 1. Demonstrate improved heel stride on R LE 2. Achieve full terminal phase of gait on R LE Target Visit 8 PT Problem 3 PT Problem #3 Impaired Range of Motion PT Goal 1 Goal / Goal Update Demonstrate minimal to no restriction of motion in R hip Target Visit 8 OT Problem 1 OT Problem #1 Knowledge Deficit OT Goal 1 Goal / Goal Update Pt. will demonstrate independence and compliance in frequency in HEP Target Visit 8 OT Problem 2 OT Problem #2 Impaired Coordination OT Goal 1 Goal / Goal Update Pt. will demonstrate increased coordination and dexterity in R hand and in bilateral activities , as demonstrated by 9 hole peg test completion < 30 seconds Target Visit 16 OT Problem 3 OT Problem #3 Impaired Endurance OT Goal 1 Goal / Goal Update Pt. will demonstrate increased endurance in R UE for prolonged use in functional activity, as measured by 45 minutes of therapeutic exercises and activity without need for rest break Target Visit 16 OT Problem 4 OT Problem #4 Impaired Balance OT Goal 1 Goal / Goal Update Pt. will demonstrate increased capacity for functional transfers and dynamic standing balance in functional activity, as demonstrated by report of increased participation and completion of work and IADLs independently ST Problem 1 ST Problem #[address] Goal 1 Goal / Goal Update The patient will participate in home programming to improve carry over/generalization of skills to the home environment. Target Visit 6 ST Goal 1 Goal / Goal Update Dysarthria: 1. The patient will produce phrases/sentences with 85% intelligibility using compensatory techniques and minimal cues 2. The patient will produce 3-4 conversational speech exchanges with 85% intelligibility using compensatory techniques and minimal cues 3. The patient will complete oral motor exercises 85% minimal cues Target Visit 10 ST Goal 1 Goal / Goal Update Dysphagia: 1. The patient will complete dysphagia exercises 85% minimal cues 2. The patient will demonstrate use of compensatory dysphagia strategies with reduced clinical signs of aspiration 85% minimal cues. Target Visit 10
--- NOTE | 2024-11-30 16:30 | PTOPEVAL1 ---
Assessment and note entered by Andrew Watts, PT Evaluation Information Assessment Status Evaluation Diagnosis G81.91 ICD-10 Condition Codes (PT) Weakness R53.1 Onset 10/01/24 Subjective Information Reports that he witched handedness that he is now left handed since the stroke. Reports that he has not been sleeping well at all due to frequent urination. Denies any falls. He is currently not driving at this time but hoping to get back to it. Navigating stairs are fine with handrail. He has been able to keep up with his laundry with no issues. Reported Pain Level Pain Score 0: Self Report Assessment PT Clinical Summary Patient presents with deficits in hip mobility, balance, and coordination evident in gait assessment and stride of gait pattern. Patient will benefit form skilled therapy to address these deficits for usp functional training, mobility, and endurance. Emphasis needs to be placed on R hip mobility with progression to coordination and balance. Plan of Care Interventions Gait Training,Neuro Re-education,Therapeutic Activities,Therapeutic Exercise PT Services Indicated Yes Treatment Frequency and 1-2x/week for 8 visits Duration These treatments will address the objective and functional deficits as defined above. The patient will be advanced safely and appropriately in order for the patient to progress towards his/her prior level of function. Additional exercises will be introduced and as well as a comprehensive home exercise program upon discharge, if needed, ?to ensure carryover of functional gains achieved in the clinic. This treatment plan has been reviewed and agreement upon by the patient.
--- NOTE | 2024-12-14 13:44 | PCSTNOTE ---
Patient did not show up for scheduled appointment this date. Called and left a voice mail message
--- NOTE | 2024-12-14 14:57 | PCPTNOTE ---
Pt canceled all therapy sessions today due to illness.
--- NOTE | 2025-01-08 14:33 | PCPTNOTE ---
Pt called at 2:27 to cancel 2:00 appt reason not given, per front office. AKS
--- NOTE | 2025-01-11 15:23 | PTOPDC ---
Assessment and note entered by Andrew Watts, PT Evaluation Information Assessment Status Discharge Diagnosis G81.91 ICD-10 Condition Codes (PT) Weakness R53.1 Onset 10/01/24 Subjective Information States that overall he feels that the strength is there and therapy has really helped. He continues to have some coordination issues that he has been continuing to work on. Will continue with speech and OT but he feels that he is good to go on physical therapy. Reported Pain Level Pain Score 0: Self Report Assessment PT Clinical Summary Patient has met all goals for physical therapy at this time. He is still showing need for speech therapy and balance and will continue to work on these things. No concerns at this time. Plan of Care PT Services Indicated Yes
--- NOTE | 2025-01-11 15:23 | OPREHPOC ---
Outpatient Therapy Plan of Care This is a Multidisciplinary Plan of Care that may contain components documented by all disciplines (PT, OT, and ST.) PT Problem 1 PT Problem #1 Knowledge Deficit PT Goal 1 Goal / Goal Update [place] with HEP Target Visit 4 Progress Met PT Goal 2 Goal / Goal Update Improve 2 minute walk test to 450 feet Progress Met PT Problem 2 PT Problem #2 Impaired Gait PT Goal 1 Goal / Goal Update 1. Demonstrate improved heel stride on R LE 2. Achieve full terminal phase of gait on R LE Target Visit 8 Progress Met PT Problem 3 PT Problem #3 Impaired Range of Motion PT Goal 1 Goal / Goal Update Demonstrate minimal to no restriction of motion in R hip Target Visit 8 Progress Met OT Problem 1 OT Problem #1 Knowledge Deficit OT Goal 1 Goal / Goal Update Pt. will demonstrate independence and compliance in frequency in HEP Target Visit 8 OT Problem 2 OT Problem #2 Impaired Coordination OT Goal 1 Goal / Goal Update Pt. will demonstrate increased coordination and dexterity in R hand and in bilateral activities , as demonstrated by 9 hole peg test completion < 30 seconds Target Visit 16 OT Problem 3 OT Problem #3 Impaired Endurance OT Goal 1 Goal / Goal Update Pt. will demonstrate increased endurance in R UE for prolonged use in functional activity, as measured by 45 minutes of therapeutic exercises and activity without need for rest break Target Visit 16 OT Problem 4 OT Problem #4 Impaired Balance OT Goal 1 Goal / Goal Update Pt. will demonstrate increased capacity for functional transfers and dynamic standing balance in functional activity, as demonstrated by report of increased participation and completion of work and IADLs independently ST Problem 1 ST Problem #[address] Goal 1 Goal / Goal Update The patient will participate in home programming to improve carry over/generalization of skills to the home environment. Target Visit 6 ST Goal 1 Goal / Goal Update Dysarthria: 1. The patient will produce phrases/sentences with 85% intelligibility using compensatory techniques and minimal cues 2. The patient will produce 3-4 conversational speech exchanges with 85% intelligibility using compensatory techniques and minimal cues 3. The patient will complete oral motor exercises 85% minimal cues Target Visit 10 ST Goal 1 Goal / Goal Update Dysphagia: 1. The patient will complete dysphagia exercises 85% minimal cues 2. The patient will demonstrate use of compensatory dysphagia strategies with reduced clinical signs of aspiration 85% minimal cues. Target Visit 10
--- NOTE | 2025-01-15 16:56 | OTOPPROG ---
Assessment and note entered by Justina Pride, OT Evaluation Information Assessment Status Progress Diagnosis R hemipeligia ICD-10 Condition Codes (OT) Generalized muscle weakness M62.81 Other ICD-10 Condition Codes ( R27.8 OT) Onset 10/01/24 Subjective Information Pt. reports pain and fatigue at start of session, stating every 5 to 7 days he has increased nerve pain bilaterally. Pt. states to was initially just his affected side, now stating both sides of his body frequently are experiencing nerve pain. Pt. reports he is swimming 3 times per week, tried cutting his grass last week, he was able to change the oil in his truck using a mechelle, reports he is using a rina to move kitchen appliances, pt . reports he got on a ladder and worked on his air conditioner. Pt. reports he still takes noticeably extra time to complete all tasks, but is able to do more activities standing and get on and off the ground, probably 100 times a day. Pt. reports first thing in the morning it kind of hurts, but later in the afternoon it gets easier. Pt. is typically R hand dominant, continually using his L hand more frequently. Assessment OT Clinical Summary Pt. 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 Pt. 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 Pt. does reports he is fatigued and in increased pain on this date having done too much at home over the last several days because he is moving, requiring repeated rest breaks during activity. Pt. continues to demonstrate ROM WNL bilaterally at all joints. Pt. will benefit from continued skilled OT services including therapeutic exercises and activities, neuroeducation, and training for increased strength, activity functional tasks required for return to greatest level of functional capacity in R UE and bilateral coordination. Plan of Care Interventions Therapeutic Exercise,Neuro Re-education, Therapeutic Activities,Sensory Integrative Techniques,Self-Care/Home Management OT Services Indicated Yes Treatment Frequency and 2x/ week for 10 visits Duration These treatments will address the objective and functional deficits as defined above. The patient will be advanced safely and appropriately in order for the patient to progress towards his/her prior level of function. Additional exercises will be introduced and as well as a comprehensive home exercise program upon discharge, if needed, ?to ensure carryover of functional gains achieved in the clinic. This treatment plan has been reviewed and agreement upon by the patient.
--- NOTE | 2025-01-15 16:57 | OPREHPOC ---
Outpatient Therapy Plan of Care This is a Multidisciplinary Plan of Care that may contain components documented by all disciplines (PT, OT, and ST.) PT Problem 1 PT Problem #1 Knowledge Deficit PT Goal 1 Goal / Goal Update [place] with HEP Target Visit 4 Progress Met PT Goal 2 Goal / Goal Update Improve 2 minute walk test to 450 feet Progress Met PT Problem 2 PT Problem #2 Impaired Gait PT Goal 1 Goal / Goal Update 1. Demonstrate improved heel stride on R LE 2. Achieve full terminal phase of gait on R LE Target Visit 8 Progress Met PT Problem 3 PT Problem #3 Impaired Range of Motion PT Goal 1 Goal / Goal Update Demonstrate minimal to no restriction of motion in R hip Target Visit 8 Progress Met OT Problem 1 OT Problem #1 Knowledge Deficit OT Goal 1 Goal / Goal Update Pt. will demonstrate independence and compliance in frequency in HEP Progress 01/15 1) Partially met, pt. reports intermittent HEP, yet very active, continue goal Target Visit 20 Progress Partially Met OT Problem 2 OT Problem #2 Impaired Coordination OT Goal 1 Goal / Goal Update Pt. will demonstrate increased coordination and dexterity in R hand and in bilateral activities , as demonstrated by 9 hole peg test completion < 30 seconds Progress 01/15/25 1) Goal not met, continue Target Visit 20 Progress Not Met OT Problem 3 OT Problem #3 Impaired Endurance OT Goal 1 Goal / Goal Update Pt. will demonstrate increased endurance in R UE for prolonged use in functional activity, as measured by 45 minutes of therapeutic exercises and activity without need for rest break Progress 01/15/25 1) Partially met, continue goal, pt. requires repeated rest breaks Target Visit 20 Progress Partially Met OT Problem 4 OT Problem #4 Impaired Balance OT Goal 1 Goal / Goal Update Pt. will demonstrate increased capacity for functional transfers and dynamic standing balance in functional activity, as demonstrated by report of increased participation and completion of work and IADLs independently Progress 01/15/25 1)Partially met, Continue Goal Target Visit [address] Problem 1 ST Problem #[address] Goal 1 Goal / Goal Update The patient will participate in home programming to improve carry over/generalization of skills to the home environment. Target Visit 6 ST Goal 1 Goal / Goal Update Dysarthria: 1. The patient will produce phrases/sentences with 85% intelligibility using compensatory techniques and minimal cues 2. The patient will produce 3-4 conversational speech exchanges with 85% intelligibility using compensatory techniques and minimal cues 3. The patient will complete oral motor exercises 85% minimal cues Target Visit 10 ST Goal 1 Goal / Goal Update Dysphagia: 1. The patient will complete dysphagia exercises 85% minimal cues 2. The patient will demonstrate use of compensatory dysphagia strategies with reduced clinical signs of aspiration 85% minimal cues. Target Visit 10
--- NOTE | 2025-01-19 15:38 | PCSTNOTE ---
Patient called & cancelled scheduled appointment this date due to conflicting appointment time.
--- NOTE | 2025-02-01 14:25 | PCSTNOTE ---
Patient did not show up for scheduled appointment this date. Called forgot scheduled appointment
--- NOTE | 2025-04-02 08:46 | STOPDC ---
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 The patient states that he still coughs at times when eating and drinking and that as the day progresses his speech can become more difficult for others to understand. The patient is producing intelligible speech in simple conversational exchanges 65-70% of the time . Phrase production 85%, Sentence Production 80%, Conversation 75%. When completing trials with CODING MACHINE OPERATOR implementing a slow rate, over articulation, and one word at a time speech intelligibility improved to 85% at sentence level and 80-85% at simple conversational exchanges. He has noted adequate range of movement for lingual protrusion, lateralization, and elevation but rate is slow and at times irregular. The patient is able to regulate respiration and improved breath support when pacing speech. The patient was noted to be audibly wheezing after trials of puree/applesauce and drinks of water. (CODING MACHINE OPERATOR has requested MBS results from [facility] to better assess swallow function history) Question if dysphagia is impacting respiration. Will initiate some dysphagia compensatory strategies and adjust if indicated following receiving most recent MBS results. The patient demonstrates timely oral preparation and transit across consistencies. However, when presented cup trials of thin liquids and tsp amounts of puree/applesauce although swallow initiation appears timely the patient is observed to have a wet vocal quality, nasal drainage, and have an audibly wheezy breath sound. CODING MACHINE OPERATOR and patient discussed compensatory techniques and applied a chin tuck posture with trials of thin liquid and puree applesauce which the patient reported appeared to help with his swallow. With the chin tuck posture additional changes in vocal quality and breath sounds were not noted by the CODING MACHINE OPERATOR. Will request most recent MBS results to adjust treatment techniques and exercises as needed. Patient Discharge 04/02/25: Dr. Xiomy Stern Patient self discharge No further services Plan of Care ST Services Indicated Yes
--- NOTE | 2025-04-02 08:47 | PCSTNOTE ---
SPEECH THERAPY DISCHARGE 04/02/25: Dr. Xiomy Stern. The patient did not return follow re-evaluation due to personal concerns. Self Discharged no further services.
== END 2025-02-16 23:59 | disposition home or self-care (01) ==
LOC: ANHST 15:30
DX: I69.322 Dysarthria following cerebral infarction (principal); G81.91 Hemiplegia, unspecified affecting right dominant side
CPT/HCPCS: 92507; 92523; 97110; 97112; 97116; 97161; 97165; 97530